=== PATIENT | female | born 1950 | race Two or more races ===

== ENCOUNTER → 2016-04-20 | Outpatient (CLI) | payer OTHER ==
[~2016-04-20] MED LIST: ASPI325T32 PO; ASPI81TA3 PO; ATOR10TA65 PO; CALC600T11 PO; GABA100C14 PO; GLIP5TAB13 PO; HYDR-905 PO; LOSA1TAB19 PO; METO-448 PO; PANT40TA4 PO; ULT50 PO; VIT D2
--- NOTE | 2016-04-20 10:19 | RADRPT ---
PROCEDURE: CR Bone length study CLINICAL INDICATION: Pain TECHNIQUE: An AP weightbearing view of the pelvis and lower extremities was submitted. The study is limited and at the distal tibia and fibula and ankle joints are not included. COMPARISON: None FINDINGS: There is a minimal femoral length discrepancy with the right measuring 42.2 and the left 42.7 cm. T he left femur is therefore 0.5 cm longer than the right. There is no significant pelvic tilt. There is mild bilateral genu varus with moderate degenerative changes seen about the medial femoral tibia l joint spaces. IMPRESSION: 1. Limited study and at the distal lower legs were not included. 2. The left femur is 0.5 cm longer than the right. 3. Bilateral genu varus with moderate degenerative changes seen about the medial femoral tibial shirley nt spaces. Physician Joleen Date Time Electronically viewed and signed by Physician Joleen on 04/20/2016 10:18 /
== END | disposition home or self-care (01) ==
LOC: HKI 09:02
PROVIDERS: ATTEND Orthopaedic Surgery
DX: Z01.818 Encounter for other preprocedural examination (principal); M25.562 Pain in left knee; M25.561 Pain in right knee; I10 Essential (primary) hypertension; E11.9 Type 2 diabetes mellitus without complications; Z96.89 Presence of other specified functional implants; M21.162 Varus deformity, not elsewhere classified, left knee; M21.161 Varus deformity, not elsewhere classified, right knee
CPT/HCPCS: 77073; 87081; Z7500; G0463

== ENCOUNTER 2016-04-26 06:38 | Inpatient (IN) | payer OTHER ==
[2016-04-26] VITALS (27 sets, daily range): BP systolic 110–179; BP diastolic 53–81; PULSE 68–100; RESP 7–19; Ht 152.4 cm; Wt 76.1 kg
[~2016-04-26] VITALS: Ht 152.4 cm; Wt 76.1 kg
[2016-04-26] MEDS ORDERED: SOD CHLORIDE 0.9% IV SCH (07:00)
[2016-04-26] MEDS ORDERED: EXPAREL NOTE (BUPIVICAINE LIPOSOMAL) XX SCH (07:00)
[2016-04-26] MEDS ORDERED: PREGABALIN 300 MG PO X1 PO SCH (07:00)
[2016-04-26] MEDS ORDERED: LACTATED RINGER'S 1,000 ML IV SCH (07:00)
[2016-04-26] MEDS ORDERED: CEFAZOLIN 2GM/50 ML (PMX) 50 ML X1 BEFORE INCISION IVPB SCH (07:00)
[2016-04-26] MEDS ORDERED: BUPIVACAINE LIPOSOME/PF 266 MG/20 ML VIAL INFIL SCH (07:00)
[2016-04-26] MEDS ORDERED: oxyCODONE (CR) 10 MG TAB [oxyCONTIN] X1 DOSE PO SCH (07:00)
[2016-04-26] MEDS ORDERED: TRANEXAMIC ACID IVPB SCH (07:00)
[2016-04-26] MEDS ORDERED: EPHEDrine SULFATE 50 MG/5 ML SYG ONE (07:00)
[2016-04-26] MEDS ORDERED: PAIN COCKTAIL-CEFUROXIME IRR SCH ×7 (07:00)
[2016-04-26] MEDS ORDERED: CELECOXIB 400 MG PO X1 DOSE PO SCH (07:00)
[2016-04-26] MEDS ORDERED: traMADOL 50 MG TAB X 1 DOSE PO SCH (07:00)
[2016-04-26] MEDS ORDERED: SOD CHLORIDE 0.9% IVPB SCH (07:00)
[2016-04-26] MEDS ORDERED: PROPOFOL 1000 MG INJ ONE (07:00)
[2016-04-26] MEDS ORDERED: TRANEXAMIC ACID IV SCH (07:00)
[2016-04-26] MEDS ORDERED: VIT D2 (12:26)
[2016-04-26] MEDS ORDERED: GLIP5TAB13 PO (12:26)
[2016-04-26] MEDS ORDERED: ASPI81TA3 PO (12:26)
[2016-04-26] MEDS ORDERED: ATOR10TA65 PO (12:26)
[2016-04-26] MEDS ORDERED: CALC600T11 PO (12:26)
[2016-04-26] MEDS ORDERED: METO-448 PO (12:26)
[2016-04-26] MEDS ORDERED: LOSA1TAB19 PO (12:26)
[2016-04-26] MEDS ORDERED: METOCLOPRAMIDE 10 MG INJ ONE (13:02)
[2016-04-26] MEDS ORDERED: CEFAZOLIN 1 GM INJ ONE (13:02)
[2016-04-26] MEDS ORDERED: ONDANSETRON 4 MG INJ ONE (13:02)
[2016-04-26] MEDS ORDERED: MIDAZOLAM 1 MG/ML 2 ML INJ ONE (13:02)
[2016-04-26] MEDS ORDERED: DEXAMETHASONE 4 MG/ML 1 ML INJ ONE (13:02)
[2016-04-26] MEDS ORDERED: VANCOMYCIN 1 GM INJ ONE (13:08)
[2016-04-26] MEDS ORDERED: SODIUM CL BACTERIOSTATIC 30 ML INJ ONE (13:08)
[2016-04-26] MEDS ORDERED: POLYMYXIN B 500000 UNIT INJ ONE (13:08)
--- NOTE | 2016-04-26 13:37 | HPN ---
Date/Time of Note Date/Time of Note DATE: 04/26/16 TIME: 13:36 Interval H&P Admission Note Pt. seen H&P reviewed: No system changes No change from H&P by Marlene Klein NP on 04/18/16. PRECIOUS MURILLO MD Apr 26, 2016 13:37
[2016-04-26] MEDS ORDERED: MEPERIDINE 25 MG INJ IV PRN (15:00)
[2016-04-26] MEDS ORDERED: HYDROmorphONE (0.2 MG/ML) 10ML SYG IV PRN ×3 (15:00)
[2016-04-26] MEDS ORDERED: DIPHENHYDRAMINE 50 MG INJ IV PRN (15:00)
[2016-04-26] MEDS ORDERED: ONDANSETRON 4 MG INJ IV PRN ×2 (15:00→17:00)
[2016-04-26] MEDS ORDERED: METOCLOPRAMIDE 10 MG INJ IV PRN (15:00)
[2016-04-26] MEDS: BACITRACIN 50000 UNITS INJ ONE ×2 (15:23→15:27)
[2016-04-26] MEDS ORDERED: METOPROLOL 5 MG INJ ONE (16:02)
[2016-04-26] MEDS ORDERED: LIDOCAINE 100 MG SYRINGE ONE (16:40)
[2016-04-26] MEDS: LACTATED RINGER'S 1,000 ML IV SCH ×2 (16:56→19:30)
--- NOTE | 2016-04-26 16:57 | OPPN ---
Date/Time of Note Date/Time of Note DATE: 04/26/16 TIME: 16:54 Operative/Procedure Note Dictation # [id number] Pre-Operative Diagnosis Left Knee OA Post-Operative Diagnosis Same Procedure Left TKA Surgeon: PRECIOUS MURILLO MD Haul Truck Driver: BLAIR MURILLO PA-C Anesthesiologist: DEX GOMEZ MD Findings Severe OA Blood Usage/Administration None Implants/Grafts Depuy Attune TKA Estimated blood loss: 50 - 100 ml's Drains Hemovac x 1 Specimens Bone and soft tissue Complications: None Anesthesia type: spinal PRECIOUS MURILLO MD Apr 26, 2016 16:57
[2016-04-26] MEDS ORDERED: ASPIRIN (EC) 325 MG TAB PO ONE (17:00)
[2016-04-26] MEDS ORDERED: oxyCODONE 5 MG TAB PO PRN ×2 (17:00)
[2016-04-26] MEDS ORDERED: MAGNESIUM HYDROXIDE 30ML CUP PO PRN (17:00)
[2016-04-26] MEDS: traMADol 50 MG TAB PO SCH ×2 (17:00→18:00)
[2016-04-26] MEDS ORDERED: NACL 0.9% 3 ML SYG IV SCH (17:00)
[2016-04-26] MEDS ORDERED: NA PHOSPHATE/BIPHOS 133 ML ENEMA PR PRN (17:00)
[2016-04-26] MEDS ORDERED: BISACODYL 10 MG SUPP PR PRN (17:00)
[2016-04-26] MEDS ORDERED: DIPHENHYDRAMINE 25 MG CAP PO PRN (17:00)
[2016-04-26] MEDS ORDERED: HYDROmorphONE 1 MG/ML SYG IV PRN (17:00)
--- NOTE | 2016-04-26 17:14 | PN ---
Date/Time of Note Date/Time of Note DATE: 04/26/16 TIME: 17:12 Assessment/Plan Lines/Catheters IV Catheter Type (from Nrsg): Peripheral IV Assessment/Plan Assessment/Plan Stable in PACU, s/p left TKA -cont abx -pain meds -ASA/SCDs -monitor drain -OOB with PT in AM -check AM labs -encourage incentive spirometry -macrobid 100mg BID for UTI -d/c interiano in AM and check urine Subjective 24 Hr Interval Summary Stable in PACU. Moving all extremities. Denies pain Exam/Review of Systems Vital Signs Vitals Vital Signs Date Time Temp Pulse Resp B/P Pulse Ox O2 Delivery O2 Flow Rate FiO2 04/26/16 12:00 68 145/66 04/26/16 10:10 97.6 16 99 Room Air Exam Free Text/Dictation Dressing dry Incision clean, dry, and intact without redness or drainage Thigh soft 5/5 Quadriceps, Tibialis Anterior, EHL, Gastroc, Soleus, Peroneals Normal sensation Palpable DT/PT, CR <2 sec No distal edema BLAIR UMRILLO PA-C Apr 26, 2016 17:14
--- NOTE | 2016-04-26 17:29 | OPR ---
DATE OF OPERATION: 04/26/2016 DATE: 04/26/2016 PREOPERATIVE DIAGNOSIS: Left knee osteoarthritis. POSTOPERATIVE DIAGNOSIS: Left knee osteoarthritis. OPERATION PERFORMED: Left total knee arthroplasty. SURGEON: Precious Murillo MD RELIEF MAP MODELER: CHEMO Hassan COMPONENTS USED: DePuy Attune size 3 femoral component, size 3 tibial baseplate, 6 mm polyethylene insert, and a 32 patellar button. ANESTHESIA: Spinal plus general endotracheal intubation plus periarticular injection. ANESTHESIOLOGIST: Sara Humphrey MD TOURNIQUET TIME: 70 minutes. ESTIMATED BLOOD LOSS: 50 mL. INTRAVENOUS FLUIDS: Crystalloid 2 liters. SPECIMENS: Bone and soft tissue. DRAINS: Hemovac x1. COMPLICATIONS: None. DISPOSITION: The patient tolerated the procedure well and was taken to the recovery room in stable condition. INDICATIONS: The patient is a 66-year-old woman who has had progressive worsening pain in both knee s with radiographic evidence of severe osteoarthritis bilaterally. She has failed nonsurgical means of treatment including activity modification, intra-articular injections, pain medications, and amb ulatory assist devices. Despite these measures, she has had worsening pain. I felt she would benef it from staged bilateral total knee arthroplasties with the left side first. The risks, benefits, and alternatives of the procedure were explained in detail to the patient. I e xplained the risks of the surgery to include but not be limited to, bleeding and possible need for b lood transfusion; infection; pain; stiffness; neurovascular injury with possible numbness, weakness, and/or paralysis anywhere from the knee down to the toes; fracture; instability; dislocation; wear and/or loosening of the prosthesis and possible need for future revision; blood clots; pulmonary emb olism; and anesthetic complications such as heart attack, stroke, GI bleed, pneumonia, and/or . Ample time was allowed for the patient to ask questions, all of which were addressed and answered. The patient understood the risks involved and wished to proceed. Informed consent was signed prior to the procedure. PROCEDURE: The patient's left knee was initialed with a marking pen in the preoperative area to nader ntify the correct operative site. The patient was brought to the operating room and transferred fro [facility] to the operating table where a spinal anesthetic was administered. The patien t was then anesthetized and intubated. A Sanchez catheter was placed. A timeout was performed to con firm that the left leg was the correct operative site. The patient was given 2 g of Ancef within on e hour prior to the procedure. A tourniquet was placed on the operative proximal thigh. The operat aleyda knee and lower extremity were prepped and draped in the usual sterile fashion. The operative lo wer extremity was elevated and exsanguinated with an Esmarch tourniquet. The proximal thigh tourniq uet was inflated to 300 mmHg. The knee was flexed. A midline incision was made and carried down through the subcutaneous tissue a nd fat with sharp dissection. Limited medial and lateral flaps were raised. A median parapatellar approach was performed. Synovial fluid was normal in color and consistency. The patella was everte d and the knee flexed. There were severe tricompartmental osteoarthritic changes noted. A medial r elease was performed at the joint line to the midcoronal plane. The ACL and PCL and remnants of the menisci were excised. The stepped drill was used to open up the femoral canal, which was irrigated and sucked dry. The intramedullary guide klaus was passed up the femur, and the distal cutting block was pinned into place for a 5 degree valgus cut, taking 10 mm of bone off distally. The oscillatin g saw was used to make the cut. The tibia was subluxed anteriorly. The tibial cutoff jig was placed over the center of the talus di stally and over the junction of the medial and middle third of the tibial tubercle proximally. The guide was pinned into place and the oscillating saw was used to make the cut. The tibia was sized. The extension gap was checked and accommodated a 6 mm spacer block with the knee in full extension. There was no varus or valgus instability. At this point, the femur was sized with the posterior referencing guide. Two holes were drilled in 3 degrees of external rotation. The two holes were in line with the transepicondylar axis, perpendi cular to Boyle's line, and in line with the tibial cutoff jig brought up with the knee flexed 90 degrees and tensed with 2 lamina spreaders, suggesting the femoral rotation was correct. The four- in-one cutting block was pinned into place. The anterior and posterior cuts and chamfer cuts were m terrance with the oscillating saw. The flexion gap was checked and accommodated the 6 mm spacer block at 90 degrees. There was no varus or valgus instability, suggesting the flexion and extension gaps we re now equal. The central box was cut out on the femur. The tibia was drilled and punched in proper rotation. Tr ial components were placed into position with a trial insert. The patella was cut down to 20 mm sissy n to 12 mm in size. Three holes were drilled and the trial button placed in position. With all the trials now in place, the knee was taken through range of motion and came to full extension as evide nced by the fact that with the foot on my abdomen and axial loading, there was no tendency for the k nee to flex. The knee was able to be flexed to 125 degrees with good patellar tracking with no late ral tilt or subluxation. At this point, I was satisfied with the overall range of motion, stability , and patellar tracking. The trials were removed. The real components were opened. Two bags of cement were mixed, one with and one without premixed antibiotic. The knee was irrigated with antibiotic saline and sucked dry. Once the cement was in a doughy stage, the real components were cemented into place. The knee was held in full extension, and the patellar component was held with a patellar clamp. All excess cemen t was removed with curettes. As the cement was hardening, the synovial/capsular layer was infiltrat ed with a mixture of 150 mg of 0.5% Bupivacaine, 8 mg of Duramorph, 300 mcg of epinephrine, 30 mg of Toradol, 100 mcg of clonidine, 750 mg of cefuroxime and 86 mL of normal saline, followed by an inje ction of 266 mg of liposomal Bupivacaine. A Hemovac drain was placed in the deep portion of the wound and brought out the anterolateral thigh. Once the cement was completely hardened, the trial liner was removed, and the real insert was open ed. The tourniquet was let down, and there was good hemostasis. The knee was then irrigated with a mixture of betadine/saline and then antibiotic saline with pulsatile lavage. The real insert was i mpacted into the tibia and reduced onto to the femur. The arthrotomy was closed with a few interrupted #1 Ethibond in a [id number]-tv-ooxne fashion, and then closed in a watertight fashion with a running #2 Stratafix suture. Knee flexion was checked against gravity and came to 125 degrees. The subcutaneous layer was irrigated and closed with 2-0 Stratafi x, and then 3-0 Stratafix and then Prineo Dermabond on the skin. The wound was covered with an occl usive dressing, and secured with cast padding and a bias dressing. The drain was secured with 3-0 n ylon. The sponge and needle counts were correct at the end of the case. The patient was then awakened, ex tubated, and taken to the recovery room in stable condition. Dictated By: PRECIOUS MURILLO MD EZ/NTS Conf#: [id number] DID#: [id number]
[2016-04-26 17:35] LABS: HEMATOCRIT 35.5 % (37.0-47.0)
--- NOTE | 2016-04-26 17:49 | RADRPT ---
PROCEDURE: XR Left Knee. CLINICAL INDICATION: Left knee pain. Postop. TECHNIQUE: Two views. Frontal and lateral. COMPARISON: 12/09/2015. FINDINGS: There is no fracture or dislocation. There is an anterior surgical drain. Gas is present in the soft tissues from the recent surgery. There is a total left knee arthroplasty which appears satisfactory. There is no lytic or blastic lesion. There is no joint effusion. IMPRESSION: 1. Satisfactory postoperative appearance of the left knee. RPTAT: QQ .Isaac Cha MD, MD Date Time Electronically viewed and signed by .Isaac hCa MD, MD on 04/26/2016 17:49 .R/
[2016-04-26] MEDS: CEFAZOLIN 2 GM/50 ML (PMX) 50 ML IVPB SCH (17:51)
[2016-04-26 17:59] LABS: CALCIUM 9.1 mg/dl (8.4-10.2); CREATININE 0.78 mg/dl (0.44-1.00); POTASSIUM 4.6 mmol/L (3.5-5.1)
[2016-04-26] MEDS: ACETAMINOPHEN 1000MG/100ML IV 100 ML IVPB SCH (18:00)
[2016-04-26] MEDS: PANTOPRAZOLE (EC) 40 MG TAB PO SCH (18:00)
[2016-04-26] MEDS ORDERED: hydrALAzine 20 MG INJ IV PRN (18:00)
--- NOTE | 2016-04-26 18:49 | CONS ---
DATE OF ADMISSION: 04/26/2016 DATE OF CONSULTATION: 04/26/2016 TYPE OF CONSULTATION: Medical. REASON FOR CONSULTATION: Medical management. CONSULTING PHYSICIAN: Dr. Alfred Adams, Internal Medicine REQUESTING PHYSICIAN: Dr. Larry Bolanos, Orthopedic Surgery HISTORY OF PRESENT ILLNESS: This is a 66-year-old Martiniquais female with past medical history of essential hypertension, type 2 diabetes mellitus, dyslipidemia, CAD and left knee osteoarthritis who was electively brought to [facility] for left total knee arthroplasty. The patient underwent a left total knee arthroplasty with no immediate postoperative complications. The patient was seen in the PACU following surgery. The patient has history of CAD, status post stenting. The patient also has history of bradycardia, probably sick sinus syndrome, status post pacemaker placement. Both of these procedures were done back in [facility]. The patient follows up with Dr. Ihsan Cole, front end software engineer at [place]. PAST MEDICAL HISTORY: Type 2 diabetes mellitus, dyslipidemia, essential hypertension, CAD. PAST SURGICAL HISTORY: Permanent pacemaker placement. HOME MEDICATIONS: 1. Atorvastatin 10 mg p.o. at bedtime. 2. Losartan with hydrochlorothiazide 50/12.5 mg p.o. daily. 3. Lopressor 25 mg p.o. b.i.d. 4. Aspirin 81 mg p.o. daily. 5. Calcium carbonate 600 mg p.o. daily. 6. Glipizide 5 mg p.o. b.i.d. 7. Vitamin D2 50,000 units every week. ALLERGIES: NO KNOWN DRUG ALLERGIES. SOCIAL HISTORY: The patient lives at home with her family. No history of tobacco, alcohol or illicit drug use. REVIEW OF SYSTEMS: Unable to obtain review of systems since the patient is sedated following surgery. Details of the patient's medical problems were obtained from the patient's who was at the bedside as well as per reviewing the patient's medical records. PHYSICAL EXAMINATION: VITAL SIGNS: Temperature 98.4, pulse rate 60, respiratory rate 16, blood pressure 145/66, oxygen saturation 99% on room air. GENERAL: This is an obese Martiniquais female lying in bed in no apparent distress, somnolent. HEENT: Head normocephalic and atraumatic. Eyes: Anicteric sclerae. Conjunctivae clear. ENT: Nasal septum is midline. Oral mucosa is dry. NECK: Supple. No JVD noticed. RESPIRATORY: Bilaterally clear to auscultation. No adventitious breath sounds heard. No use of accessory muscles of respiration. CARDIAC: Regular rate and rhythm. S1, S2 heard. ABDOMEN: Soft, nontender and nondistended. Bowel sounds hypoactive in all 4 quadrants. GENITOURINARY: The patient has Sanchez catheter in place. EXTREMITIES: Left knee joint surgical dressing. Left lower extremity dorsalis pedis and posterior tibial pulses palpable. Right lower extremity within normal limits. NEUROLOGIC: The patient is somnolent. Wakes up to call and follows simple commands. Moves all 4 extremities. LABORATORY AND DIAGNOSTIC DATA: None available. IMPRESSION: This is a 66-year-old Martiniqu[place] female who was brought into the hospital for elective left total knee arthroplasty who underwent surgery without any immediate postoperative complications who will be admitted here for further management. ASSESSMENT AND PLAN: 1. Left knee osteoarthritis. Status post left total knee arthroplasty on 04/26. Continue postoperative care. Continue pain management as per Surgery. IV fluids as per Surgery. 2. Essential hypertension. The patient's home antihypertensives will be resumed. The patient will also be started on p.r.n. antihypertensives for any systolic blood pressure readings greater than 160 mmHg. 3. History of coronary artery disease. Status post stenting in the past. The patient will be continued on aspirin. However, aspirin dosing will be deferred to Orthopedic Surgery. 4. Dyslipidemia. The patient will be resumed on her statins. A fasting lipid panel will be obtained. A low-cholesterol diet will be reinforced. 5. Type 2 diabetes mellitus. The patient has been resumed on her oral medications by Orthopedic Surgery. This will be continued. A hemoglobin A1c will be obtained to evaluate the blood glucose control over the past few weeks. Random blood glucose checks will be ordered. If the patient's blood glucose is uncontrolled, will start the patient on sliding scale insulin. Additional diagnostic and therapeutic orders will be as clinically indicated. The case and management of this patient was fully discussed with Dr. Adams. We will continue to follow with the patient along with you. Thank you for the consultation. Approximately 45 minutes was spent on the medical consultation on this patient. NYASIA ADAMS MD, AM/LB Conf#: [id number] DID#: [id number] [id number]
[2016-04-26] MEDS: PREGABALIN 25 MG CAP PO SCH (20:52)
[2016-04-26] MEDS: ATORVASTATIN 10 MG TAB PO SCH (20:52)
[2016-04-26] MEDS: glipiZIDE 5 MG TAB PO SCH (20:52)
[2016-04-26] MEDS: METOPROLOL 25 MG TAB PO SCH (20:52)
[2016-04-26] MEDS: NITROFURANTOIN (SR) 100 MG CAP PO SCH (20:52)
[2016-04-26] MEDS: DOCUSATE SODIUM 100 MG CAP PO SCH (20:52)
[2016-04-27] MEDS: traMADol 50 MG TAB PO SCH ×4 (00:09→18:20)
[2016-04-27] MEDS: ACETAMINOPHEN 1000MG/100ML IV 100 ML IVPB SCH ×3 (00:14→11:44)
[2016-04-27] MEDS: LACTATED RINGER'S 1,000 ML IV SCH ×3 (00:56→15:45)
[2016-04-27] MEDS: CEFAZOLIN 2 GM/50 ML (PMX) 50 ML IVPB SCH ×2 (01:57→08:43)
[2016-04-27 05:00] VITALS: BP 119/53; PULSE 66; RESP 18
[2016-04-27] MEDS: PANTOPRAZOLE (EC) 40 MG TAB PO SCH ×2 (05:46→18:22)
[2016-04-27 05:57] LABS: HEMATOCRIT 34.4 % (37.0-47.0); HEMOGLOBIN 11.7 g/dl (12.0-16.0); LYMPHOCYTES # 0.7 10^3/ul (0.8-2.9); MEAN CORPUSCULAR HGB CONC 33.9 g/dl (32.0-37.0); MEAN CORPUSCULAR VOLUME 88.5 fl (82.0-101.0); MEAN PLATELET VOLUME 9.3 fl (7.4-10.4); MONOCYTE # 0.4 10^3/ul (0.3-0.9); NEUTROPHIL # 8.1 10^3/ul (1.6-7.5); PLATELET COUNT 179 10^3/UL (140-440); RED BLOOD COUNT 3.89 10^6/ul (4.20-5.40); RED CELL DISTRIBUTION WIDTH 13.5 % (11.5-14.5); UNCORRECTED WBC 9.3 10^3/ul (4.8-10.8); WHITE BLOOD COUNT 9.3 10^3/ul (4.8-10.8)
[2016-04-27 06:19] LABS: CONDITION 1
[2016-04-27 06:24] LABS: CHOL/HDL RATIO 2.7 RATIO; MAGNESIUM 1.8 mg/dl (1.7-2.5); PHOSPHORUS 4.9 mg/dl (2.5-4.9)
[2016-04-27 06:37] LABS: ALBUMIN 3.3 g/dl (3.3-4.9)
[2016-04-27 06:38] LABS: POTASSIUM 5.8 mmol/L (3.5-5.1)
[2016-04-27 06:40] LABS: ALBUMIN/GLOBULIN RATIO 1.13; BILIRUBIN,INDIRECT 0.2 mg/dl (0-1.1); BILIRUBIN,TOTAL 0.2 mg/dl (0.2-1.3); CREATININE 0.9 mg/dl (0.44-1.00); TOTAL PROTEIN 6.2 g/dl (6.1-8.1)
[2016-04-27 06:41] LABS: CALCIUM 8.9 mg/dl (8.4-10.2)
[2016-04-27 07:07] LABS: ADD UMIC YES; URINE BILIRUBIN (Dip) NEGATIVE (NEGATIVE); URINE BLOOD (Dip) 2+ (NEGATIVE); URINE COLOR LT. YELLOW (YELLOW); URINE GLUCOSE (Dip) NEGATIVE (NEGATIVE); URINE KETONES (Dip) NEGATIVE (NEGATIVE); URINE LEUKOCYTE ESTERASE (Dip) 1+ (NEGATIVE); URINE NITRITE (Dip) NEGATIVE (NEGATIVE); URINE TOTAL PROTEIN (Dip) NEGATIVE (NEGATIVE); URINE UROBILINOGEN (Dip) 0.2 E.U./dL (0.1-1.0)
--- NOTE | 2016-04-27 07:26 | PDOCDIS ---
Discharge Instructions DIAGNOSIS Discharge Diagnosis: s/p left TKA CONDITION Patient Condition: Good HOME CARE INSTRUCTIONS: Diet Instructions: Regular ACTIVITY: Activity Restrictions: Slowly Increase Activity Rest between Activity Avoid heavy lifting Do not operate Machinery Do not operate Power Tool Avoid Heavy Housework Keep Limb Elevated Bathing Restrictions: Shower FOLLOW UP/APPOINTMENTS Appointments follow up with Dr. Bolanos in the office on 05/07/16 OTHER ORDERS: Other Orders: S/P TKA Physical Therapy: Three times per week at home x 2 weeks Daily in Rehab/SNF (if applicable) WB STATUS: WBAT 1. Strengthening exercises for both upper and un-operated lower extremities. 2. Gait training with front wheeled walker 3. Active range of motion exercises to operative knee. 4. When not working on knee range of motion exercises, distal towel roll under operative ankle/distal calf to promote full extension. 5. DO NOT PUT ANYTHING BEHIND OPERATIVE KNEE!!! 6. Quadriceps and hamstring strengthening. 7. May switch to cane in contra lateral hand 6 weeks after surgery. 8. Physical Therapy can open case if nursing is not available. 9. Use Ice Machine as instructed from date of surgery while at rest 3X/day. 10. Patient requires mobile SCDs to reduce risk of developing DVT following TKA. Patient will use the mobile SCDs for 30 days postoperatively. Bathing assistance by home health aide twice weekly if Medicare patient. Occupational Therapy: Evaluation for assistive devices and ADL training. Wound Care: Keep incision dry & covered with Tegaderm until first visit with Dr. Bolanos Anticoagulation Orders: Enteric Coated Aspirin 325 mg po bid x 6 weeks from date of surgery Follow-up:Call for an appointment with Dr. Bolanos in 1 week after discharged from hospital at DME Orders: FWW, 3-in-1 Commode, Polar ice machine, Mobile SCDs BLAIR MURILLO PA-C Apr 27, 2016 07:26
[2016-04-27] MEDS ORDERED: DEXTROSE 50% 50 ML SYRINGE IV PRN ×2 (07:30)
[2016-04-27] MEDS ORDERED: GLUCAGON 1 MG INJ IM PRN (07:30)
[2016-04-27] MEDS ORDERED: GLUCOSE GEL 15 GRAM TUBE BUCCAL PRN (07:30)
[2016-04-27] MEDS ORDERED: GLUCOSE GEL 15 GRAM TUBE PO PRN ×2 (07:30)
[2016-04-27] MEDS ORDERED: ASPI325T32 PO (07:31)
[2016-04-27] MEDS ORDERED: PANT40TA4 PO (07:31)
[2016-04-27] MEDS ORDERED: GABA100C14 PO (07:31)
[2016-04-27] MEDS ORDERED: ULT50 PO (07:31)
[2016-04-27 07:59] LABS: BACTERIA,URINE FEW; URINE RBCS 25-50 /HPF (0)
[2016-04-27] MEDS ORDERED: NA POLYST SULFON 15 GM/60 ML BTL PO ONE ×2 (08:00→09:00)
[2016-04-27 08:23] VITALS: BP 120/58; RESP 18
[2016-04-27] MEDS: glipiZIDE 5 MG TAB PO SCH ×2 (08:44→21:19)
[2016-04-27] MEDS: NITROFURANTOIN (SR) 100 MG CAP PO SCH ×2 (08:44→21:18)
[2016-04-27] MEDS: ASPIRIN (EC) 325 MG TAB PO SCH ×2 (08:44→21:18)
[2016-04-27] MEDS: DOCUSATE SODIUM 100 MG CAP PO SCH ×2 (08:44→21:00)
[2016-04-27] MEDS: CELECOXIB 200 MG CAP PO SCH (08:44)
[2016-04-27] MEDS: METOPROLOL 25 MG TAB PO SCH ×2 (08:46→21:19)
[2016-04-27] MEDS: PREGABALIN 25 MG CAP PO SCH ×2 (08:58→21:18)
--- NOTE | 2016-04-27 09:12 | PN ---
Date/Time of Note Date/Time of Note DATE: 04/27/16 TIME: 09:11 Assessment/Plan Lines/Catheters IV Catheter Type (from Nrsg): Peripheral IV Sanchez in Place (from Nrsg): Yes Assessment/Plan Assessment/Plan Stable POD #1, s/p left TKA -d/c abx -pain meds -ASA/SCDs -OOB with PT -drain removed -check AM labs -encourage incentive spirometry -d/c planning. Will aim to d/c tomorrow Subjective 24 Hr Interval Summary Doing well. No acute overnight events. Denies pain. VSS, afebrile. Would like to go home versus rehab Exam/Review of Systems Vital Signs Vitals Vital Signs Date Time Temp Pulse Resp B/P Pulse Ox O2 Delivery O2 Flow Rate FiO2 04/27/16 08:23 97.9 61 18 120/58 98 04/27/16 05:00 Nasal Cannula 04/26/16 19:40 2.0 Intake and Output 04/26/16 04/26/16 04/27/16 15:00 23:00 07:00 Intake Total 2000 ml 1610 ml Output Total 280 ml 980 ml Balance 1720 ml 630 ml Exam Free Text/Dictation Hemovac: 210cc Dressing dry Incision clean, dry, and intact without redness or drainage Thigh soft 5/5 Quadriceps, Tibialis Anterior, EHL, Gastroc, Soleus, Peroneals Normal sensation Palpable DT/PT, CR <2 sec No distal edema Results Result Diagram: 04/27/1643904/27/16439 BLAIR MURILLO PA-C Apr 27, 2016 09:12
--- NOTE | 2016-04-27 11:49 | PN ---
Date/Time of Note Date/Time of Note DATE: 04/27/16 TIME: 11:43 Assessment/Plan VTE Prophylaxis VTE Prophylaxis Intervention: other (Aspirin as per orthopedic surgery.) Lines/Catheters IV Catheter Type (from [facility]): Peripheral IV Urinary Cath still in place: No Assessment/Plan Chief Complaint/Hosp Course 1. Left knee osteoarthritis. Status post left total knee arthroplasty on 04/26. Continue postoperative care. Continue pain management as per Surgery. Continue PT. 2. Essential hypertension. Continue routine antihypertensives and p.r.n. antihypertensives for any systolic blood pressure readings greater than 160 mmHg. 3. History of coronary artery disease. Status post stenting in the past. The patient will be continued on aspirin. 4. Dyslipidemia. The patient will be continued on her statins. Fasting lipid panel satisfactory. A low-cholesterol diet will be reinforced. 5. Type 2 diabetes mellitus. Hemoglobin A1C 6.6. On sulfonylureas. 6. Hyperkalemia. Etiology unclear. Will give a single dose of potassium exchange resin. Will repeat potassium level in the afternoon. 7. Permanent pacemaker. As per the family, the patient has a permanent pacemaker in place. However, the 12-lead EKG showing normal sinus rhythm and no pacer spikes. Denies any cardiac complaints. Monitor. 8. Fluids, electrolytes, and nutrition. Carbohydrate controlled, low- cholesterol diet. 9. DVT prophylaxis. Aspirin as per orthopedic surgery. 10. Gastrointestinal prophylaxis. Proton pump inhibitors. 11. Plan. Single dose of Kayexalate. Repeat potassium in the afternoon. Continue surgical management as per orthopedic surgery. Thank you for the consult. Case discussed with Dr. Garcia. Problems: Subjective 24 Hr Interval Summary Free Text/Dictation Left knee pain well controlled. Denies any dyspnea. Exam/Review of Systems Vital Signs Vitals Vital Signs Date Time Temp Pulse Resp B/P Pulse Ox O2 Delivery O2 Flow Rate FiO2 04/27/16 08:23 97.9 61 18 120/58 98 04/27/16 05:00 Nasal Cannula 04/26/16 19:40 2.0 Intake and Output 04/26/16 04/26/16 04/27/16 15:00 23:00 07:00 Intake Total 2000 ml 1610 ml Output Total 280 ml 980 ml Balance 1720 ml 630 ml Exam GENERAL: This is an obese [place] female lying in bed in no apparent distress. HEENT: Head normocephalic and atraumatic. Eyes: Anicteric sclerae. Conjunctivae clear. ENT: Nasal septum is midline. Oral mucosa is dry. NECK: Supple. No JVD noticed. RESPIRATORY: Bilaterally clear to auscultation. No adventitious breath sounds heard. No use of accessory muscles of respiration. CARDIAC: Regular rate and rhythm. S1, S2 heard. ABDOMEN: Soft, nontender and nondistended. Bowel sounds hypoactive in all 4 quadrants. GENITOURINARY: The patient has Sanchez catheter in place. EXTREMITIES: Left knee joint surgical dressing. Left lower extremity dorsalis pedis and posterior tibial pulses palpable. Right lower extremity within normal limits. NEUROLOGIC: The patient is awake, alert, and oriented. No focal deficits. Results Result Diagram: 04/27/16 0440 04/27/16 0440 Results 24 hrs Laboratory Tests Test 04/26/16 17:25 04/26/16 17:59 04/26/16 22:15 04/27/16 04:40 Anion Gap 16 18 H Blood Urea Nitrogen 19 24 H Calcium Level 9.1 8.9 Carbon Dioxide Level 25 25 Chloride Level 101 98 Creatinine 0.78 0.90 Glucose Level 172 166 Hematocrit 35.5 L 34.4 L Hemoglobin 12.0 11.7 L Potassium Level 4.6 5.8 H Sodium Level 137 135 Bedside Glucose 171 239 H Alanine Aminotransferase (ALT/SGPT) 24 Albumin 3.3 Albumin/Globulin Ratio 1.13 Alkaline Phosphatase 46 Aspartate Amino Transf (AST/SGOT) 23 Basophils # 0.0 Basophils % 0.0 Cholesterol Level 110 Cholesterol/HDL Ratio 2.7 Direct Bilirubin 0.00 Eosinophils # 0.0 Eosinophils % 0.0 Globulin 2.90 HDL Cholesterol 40 Hemoglobin A1c 6.6 H Indirect Bilirubin 0.2 LDL Cholesterol, Calculated 50 Lymphocytes # 0.7 L Lymphocytes % 8.0 L Magnesium Level 1.8 Mean Corpuscular Hemoglobin 30.0 Mean Corpuscular Hemoglobin Concent 33.9 Mean Corpuscular Volume 88.5 Mean Platelet Volume 9.3 Monocytes # 0.4 Monocytes % 4.0 Neutrophils # 8.1 H Neutrophils % 88.0 H Nucleated Red Blood Cells # 0.0 Nucleated Red Blood Cells % 0.0 Phosphorus Level 4.9 Platelet Count 179 Red Blood Count 3.89 L Red Cell Distribution Width 13.5 Total Bilirubin 0.2 Total Protein 6.2 Triglycerides Level 100 White Blood Count 9.3 Test 04/27/16 06:00 04/27/16 08:08 Urine Bacteria FEW Urine Bilirubin NEGATIVE Urine Clarity CLEAR Urine Color LT. YELLOW Urine Epithelial Cells FEW Urine Glucose NEGATIVE Urine Hemoglobin 2+ H Urine Ketones NEGATIVE Urine Leukocyte Esterase 1+ H Urine Microscopic RBC 25-50 Urine Microscopic WBC 10-25 Urine Nitrite NEGATIVE Urine Specific [place] 1.020 Urine Total Protein NEGATIVE Urine Urobilinogen 0.2 E.U./dL Urine pH 6.0 Bedside Glucose 137 Medications Medications Current Medications Miscellaneous Information 1 ea NOTE XX ; Start 04/26/16 at 07:00; Stop 04/30/16 at 06:59 Atorvastatin Calcium (Lipitor) 10 mg QHS PO Last administered on 04/26/16 20: 52; Admin Dose 10 MG; Start 04/26/16 at 21:00 Glipizide (Glucotrol) 5 mg BID PO Last administered on 04/27/16 08:44; Admin Dose 5 MG; Start 04/26/16 at 21:00 Metoprolol Tartrate 25 mg 25 mg BID PO Last administered on 04/27/16 08:46; Admin Dose 25 MG; Start 04/26/16 at 21:00 Lactated Ringer's (Lr) 1,000 ml @ 125 mls/hr Q8H IV Last administered on 05:59; Admin Dose 125 MLS/HR; Start 04/26/16 at 16:56 Celecoxib 200 mg 200 mg DAILY PO Last administered on 04/27/16 08:44; Admin Dose 200 MG; Start 04/27/16 at 09:00 Acetaminophen (Ofirmev 1000mg/ 100ml Iv) 100 ml @ 400 mls/hr Q6 IVPB Last administered on 04/27/16 05:46; Admin Dose 400 MLS/HR; Start 04/26/16 at 18:00 ; Stop 04/27/16 at 17:59 Tramadol HCl (Ultram) 50 mg Q6 PO Last administered on 04/27/16 05:47; Admin Dose 50 MG; Start 04/26/16 at 12:00; Stop 04/29/16 at 11:59 Oxycodone HCl (Roxicodone) 5 mg Q4H PRN PO PAIN LEVEL 1-3; Start 04/26/16 at 17 :00 Oxycodone HCl (Roxicodone) 10 mg Q4H PRN PO PAIN LEVEL 4-7; Start 04/26/16 at 17:00 Hydromorphone HCl (Dilaudid) 1 mg Q3H PRN IV PAIN LEVEL 8-10; Start 04/26/16 at 17:00 Ondansetron HCl (Zofran Inj) 4 mg Q6H PRN IV NAUSEA AND/OR VOMITING; Start 03/31 at 17:00 Bisacodyl (Dulcolax Supp) 10 mg Q12H PRN [place] CONSTIPATION; Start 04/26/16 at 17: 00 Magnesium Hydroxide (Milk Of Mag) 30 ml BID PRN PO CONSTIPATION; Start at 17:00 Sodium Biphosphate/ Sodium Phosphate (Fleet Enema) 133 ml DAILY PRN [place] CONSTIPATION; Start 04/26/16 at 17:00 Docusate Sodium (Colace) 100 mg BID PO Last administered on 04/27/16 08:44; Admin Dose 100 MG; Start 04/26/16 at 21:00 Diphenhydramine HCl (Benadryl) 25 mg Q6H PRN PO PRURITUS; Start 04/26/16 at 17: 00 Aspirin (Ecotrin) 325 mg BID PO Last administered on 04/27/16 08:44; Admin Dose 325 MG; Start 04/27/16 at 09:00 Pantoprazole (Protonix Tab) 40 mg BID@06,18 PO Last administered on 04/27/16 05:46; Admin Dose 40 MG; Start 04/26/16 at 18:00 Pregabalin (Lyrica) 50 mg BID PO Last administered on 04/27/16 08:58; Admin Dose 50 MG; Start 04/26/16 at 21:00 Nitrofurantoin Macrocrystals (Macrobid) 100 mg BID PO Last administered on 04/27 08:44; Admin Dose 100 MG; Start 04/26/16 at 21:00; Stop 05/03/16 at 20:59 Hydralazine HCl (Apresoline) 10 mg Q6H PRN IV SBP>160; Start 04/26/16 at 18:00 Miscellaneous Information 1 ea NOTE XX ; Start 04/27/16 at 07:30 Glucose (Glutose) 15 gm Q15M PRN PO DECREASED GLUCOSE; Start 04/27/16 at 07:30 Glucose (Glutose) 22.5 gm Q15M PRN PO DECREASED GLUCOSE; Start 04/27/16 at 07: 30 Dextrose (D50w Syringe) 25 ml Q15M PRN IV DECREASED GLUCOSE; Start 04/27/16 at 07:30 Dextrose (D50w Syringe) 50 ml Q15M PRN IV DECREASED GLUCOSE; Start 04/27/16 at 07:30 Glucagon (Glucagen) 1 mg Q15M PRN IM DECREASED GLUCOSE; Start 04/27/16 at 07:30 Glucose (Glutose) 15 gm Q15M PRN BUCCAL DECREASED GLUCOSE; Start 04/27/16 at 07 :30 NYASIA TRUJILLO NP Apr 27, 2016 11:48
--- NOTE | 2016-04-27 12:57 | PN ---
Date/Time of Note Date/Time of Note DATE: 04/27/16 TIME: 12:55 Assessment/Plan VTE Prophylaxis VTE Prophylaxis Intervention: ambulation Lines/Catheters IV Catheter Type (from Nrsg): Peripheral IV Urinary Cath still in place: No Subjective 24 Hr Interval Summary Free Text/Dictation aNESTHESIA NOTE: a66 TEAR FEMALE S/P left knee replacement POD # 1 under GA and Spinal. pt is doing well VS stable. no pain, headache, N/V. back is clean. Exam/Review of Systems Vital Signs Vitals Vital Signs Date Time Temp Pulse Resp B/P Pulse Ox O2 Delivery O2 Flow Rate FiO2 04/27/16 08:23 97.9 61 18 120/58 98 04/27/16 05:00 Nasal Cannula 04/26/16 19:40 2.0 Intake and Output 04/26/16 04/26/16 04/27/16 15:00 23:00 07:00 Intake Total 2000 ml 1610 ml Output Total 280 ml 980 ml Balance 1720 ml 630 ml Results Result Diagram: 04/27/16 0440 04/27/16 0440 Results 24 hrs Laboratory Tests Test 04/26/16 17:25 04/26/16 17:59 04/26/16 22:15 04/27/16 04:40 Anion Gap 16 18 H Blood Urea Nitrogen 19 24 H Calcium Level 9.1 8.9 Carbon Dioxide Level 25 25 Chloride Level 101 98 Creatinine 0.78 0.90 Glucose Level 172 166 Hematocrit 35.5 L 34.4 L Hemoglobin 12.0 11.7 L Potassium Level 4.6 5.8 H Sodium Level 137 135 Bedside Glucose 171 239 H Alanine Aminotransferase (ALT/SGPT) 24 Albumin 3.3 Albumin/Globulin Ratio 1.13 Alkaline Phosphatase 46 Aspartate Amino Transf (AST/SGOT) 23 Basophils # 0.0 Basophils % 0.0 Cholesterol Level 110 Cholesterol/HDL Ratio 2.7 Direct Bilirubin 0.00 Eosinophils # 0.0 Eosinophils % 0.0 Globulin 2.90 HDL Cholesterol 40 Hemoglobin A1c 6.6 H Indirect Bilirubin 0.2 LDL Cholesterol, Calculated 50 Lymphocytes # 0.7 L Lymphocytes % 8.0 L Magnesium Level 1.8 Mean Corpuscular Hemoglobin 30.0 Mean Corpuscular Hemoglobin Concent 33.9 Mean Corpuscular Volume 88.5 Mean Platelet Volume 9.3 Monocytes # 0.4 Monocytes % 4.0 Neutrophils # 8.1 H Neutrophils % 88.0 H Nucleated Red Blood Cells # 0.0 Nucleated Red Blood Cells % 0.0 Phosphorus Level 4.9 Platelet Count 179 Red Blood Count 3.89 L Red Cell Distribution Width 13.5 Total Bilirubin 0.2 Total Protein 6.2 Triglycerides Level 100 White Blood Count 9.3 Test 04/27/16 06:00 04/27/16 08:08 Urine Bacteria FEW Urine Bilirubin NEGATIVE Urine Clarity CLEAR Urine Color LT. YELLOW Urine Epithelial Cells FEW Urine Glucose NEGATIVE Urine Hemoglobin 2+ H Urine Ketones NEGATIVE Urine Leukocyte Esterase 1+ H Urine Microscopic RBC 25-50 Urine Microscopic WBC 10-25 Urine Nitrite NEGATIVE Urine Specific [place] 1.020 Urine Total Protein NEGATIVE Urine Urobilinogen 0.2 E.U./dL Urine pH 6.0 Bedside Glucose 137 Medications Medications Current Medications Miscellaneous Information 1 ea NOTE XX ; Start 04/26/16 at 07:00; Stop 04/30/16 at 06:59 Atorvastatin Calcium (Lipitor) 10 mg QHS PO Last administered on 04/26/16 20: 52; Admin Dose 10 MG; Start 04/26/16 at 21:00 Glipizide (Glucotrol) 5 mg BID PO Last administered on 04/27/16 08:44; Admin Dose 5 MG; Start 04/26/16 at 21:00 Metoprolol Tartrate 25 mg 25 mg BID PO Last administered on 04/27/16 08:46; Admin Dose 25 MG; Start 04/26/16 at 21:00 Lactated Ringer's (Lr) 1,000 ml @ 125 mls/hr Q8H IV Last administered on 05:59; Admin Dose 125 MLS/HR; Start 04/26/16 at 16:56 Celecoxib 200 mg 200 mg DAILY PO Last administered on 04/27/16 08:44; Admin Dose 200 MG; Start 04/27/16 at 09:00 Acetaminophen (Ofirmev 1000mg/ 100ml Iv) 100 ml @ 400 mls/hr Q6 IVPB Last administered on 04/27/16 11:44; Admin Dose 400 MLS/HR; Start 04/26/16 at 18:00 ; Stop 04/27/16 at 17:59 Tramadol HCl (Ultram) 50 mg Q6 PO Last administered on 04/27/16 11:44; Admin Dose 50 MG; Start 04/26/16 at 12:00; Stop 04/29/16 at 11:59 Oxycodone HCl (Roxicodone) 5 mg Q4H PRN PO PAIN LEVEL 1-3; Start 04/26/16 at 17 :00 Oxycodone HCl (Roxicodone) 10 mg Q4H PRN PO PAIN LEVEL 4-7; Start 04/26/16 at 17:00 Hydromorphone HCl (Dilaudid) 1 mg Q3H PRN IV PAIN LEVEL 8-10; Start 04/26/16 at 17:00 Ondansetron HCl (Zofran Inj) 4 mg Q6H PRN IV NAUSEA AND/OR VOMITING; Start 03/31 at 17:00 Bisacodyl (Dulcolax Supp) 10 mg Q12H PRN [place] CONSTIPATION; Start 04/26/16 at 17: 00 Magnesium Hydroxide (Milk Of Mag) 30 ml BID PRN PO CONSTIPATION; Start at 17:00 Sodium Biphosphate/ Sodium Phosphate (Fleet Enema) 133 ml DAILY PRN [place] CONSTIPATION; Start 04/26/16 at 17:00 Docusate Sodium (Colace) 100 mg BID PO Last administered on 04/27/16 08:44; Admin Dose 100 MG; Start 04/26/16 at 21:00 Diphenhydramine HCl (Benadryl) 25 mg Q6H PRN PO PRURITUS; Start 04/26/16 at 17: 00 Aspirin (Ecotrin) 325 mg BID PO Last administered on 04/27/16 08:44; Admin Dose 325 MG; Start 04/27/16 at 09:00 Pantoprazole (Protonix Tab) 40 mg BID@06,18 PO Last administered on 04/27/16 05:46; Admin Dose 40 MG; Start 04/26/16 at 18:00 Pregabalin (Lyrica) 50 mg BID PO Last administered on 04/27/16 08:58; Admin Dose 50 MG; Start 04/26/16 at 21:00 Nitrofurantoin Macrocrystals (Macrobid) 100 mg BID PO Last administered on 04/27 08:44; Admin Dose 100 MG; Start 04/26/16 at 21:00; Stop 05/03/16 at 20:59 Hydralazine HCl (Apresoline) 10 mg Q6H PRN IV SBP>160; Start 04/26/16 at 18:00 Miscellaneous Information 1 ea NOTE XX ; Start 04/27/16 at 07:30 Glucose (Glutose) 15 gm Q15M PRN PO DECREASED GLUCOSE; Start 04/27/16 at 07:30 Glucose (Glutose) 22.5 gm Q15M PRN PO DECREASED GLUCOSE; Start 04/27/16 at 07: 30 Dextrose (D50w Syringe) 25 ml Q15M PRN IV DECREASED GLUCOSE; Start 04/27/16 at 07:30 Dextrose (D50w Syringe) 50 ml Q15M PRN IV DECREASED GLUCOSE; Start 04/27/16 at 07:30 Glucagon (Glucagen) 1 mg Q15M PRN IM DECREASED GLUCOSE; Start 04/27/16 at 07:30 Glucose (Glutose) 15 gm Q15M PRN BUCCAL DECREASED GLUCOSE; Start 04/27/16 at 07 :30 DEX GOMEZ MD Apr 27, 2016 12:57
[2016-04-27] MEDS: ATORVASTATIN 10 MG TAB PO SCH (21:18)
[2016-04-27 22:04] VITALS: BP 145/65; RESP 20
[2016-04-28] VITALS (8 sets, daily range): BP systolic 79–214; BP diastolic 49–91; PULSE 67–86; RESP 18–20
[2016-04-28] MEDS: traMADol 50 MG TAB PO SCH ×4 (00:31→17:55)
[2016-04-28] MEDS: LACTATED RINGER'S 1,000 ML IV SCH ×3 (00:56→17:57)
[2016-04-28 05:31] LABS: POTASSIUM 4.8 mmol/L (3.5-5.1)
[2016-04-28 05:33] LABS: CREATININE 0.81 mg/dl (0.44-1.00)
[2016-04-28] MEDS: PANTOPRAZOLE (EC) 40 MG TAB PO SCH ×2 (06:04→17:55)
[2016-04-28 07:09] LABS: HEMATOCRIT 32.3 % (37.0-47.0); HEMOGLOBIN 10.9 g/dl (12.0-16.0)
[2016-04-28] MEDS: DOCUSATE SODIUM 100 MG CAP PO SCH ×2 (08:14→21:27)
[2016-04-28] MEDS: PREGABALIN 25 MG CAP PO SCH ×2 (08:15→21:27)
[2016-04-28] MEDS: ASPIRIN (EC) 325 MG TAB PO SCH ×2 (08:15→21:27)
[2016-04-28] MEDS: CELECOXIB 200 MG CAP PO SCH (08:15)
[2016-04-28] MEDS: NITROFURANTOIN (SR) 100 MG CAP PO SCH ×2 (08:15→21:27)
[2016-04-28] MEDS: METOPROLOL 25 MG TAB PO SCH ×2 (08:15→19:43)
[2016-04-28] MEDS: glipiZIDE 5 MG TAB PO SCH ×2 (08:16→21:28)
--- NOTE | 2016-04-28 09:48 | PN ---
Date/Time of Note Date/Time of Note DATE: 04/28/16 TIME: 09:46 Assessment/Plan VTE Prophylaxis VTE Prophylaxis Intervention: other (Aspirin as per orthopedic surgery) Lines/Catheters IV [facility] Type (from [facility] Peripheral IV Urinary Cath still in place: No Assessment/Plan Chief Complaint/Hosp Course 1. Left knee osteoarthritis. Status post left total knee arthroplasty on 04/26. Continue postoperative care. Continue pain management as per Surgery. Continue PT. 2. Essential hypertension. Continue routine antihypertensives and p.r.n. antihypertensives for any systolic blood pressure readings greater than 160 mmHg. 3. History of coronary artery disease. Status post stenting in the past. The patient will be continued on aspirin. 4. Dyslipidemia. The patient will be continued on her statins. Fasting lipid panel satisfactory. A low-cholesterol diet will be reinforced. 5. Type 2 diabetes mellitus. Hemoglobin A1C 6.6. On sulfonylureas. 6. Hyperkalemia. Resolved. 7. Permanent pacemaker. As per the family, the patient has a permanent pacemaker in place. However, the 12-lead EKG showing normal sinus rhythm and no pacer spikes. Denies any cardiac complaints. Monitor. 8. Fluids, electrolytes, and nutrition. Carbohydrate controlled, low- cholesterol diet. 9. DVT prophylaxis. Aspirin as per orthopedic surgery. 10. Gastrointestinal prophylaxis. Proton pump inhibitors. 11. Plan. Give 500 mL of normal saline IV bolus. Monitor blood pressure closely. Continue surgical management as per orthopedic surgery. Thank you for the consult. Case discussed with Dr. Garcia. Problems: Subjective 24 Hr Interval Summary Free Text/Dictation The patient had an episode of orthostatic hypotension in the morning. The patient's blood sugars were slightly on the lower side. Patient denied any chest pain. Exam/Review of Systems Vital Signs Vitals Vital Signs Date Time Temp Pulse Resp B/P Pulse Ox O2 Delivery O2 Flow Rate FiO2 04/28/16 08:05 97.3 61 20 137/65 96 04/27/16 05:00 Nasal Cannula 04/26/16 19:40 2.0 Intake and Output 04/27/16 04/27/16 04/28/16 14:59 22:59 06:59 Intake Total 2880 ml 2400 ml Balance 2880 ml 2400 ml Exam GENERAL: This is an obese Citizen Of [place] female lying in bed in no apparent distress. HEENT: Head normocephalic and atraumatic. Eyes: Anicteric sclerae. Conjunctivae clear. ENT: Nasal septum is midline. Oral mucosa is dry. NECK: Supple. No JVD noticed. RESPIRATORY: Bilaterally clear to auscultation. No adventitious breath sounds heard. No use of accessory muscles of respiration. CARDIAC: Regular rate and rhythm. S1, S2 heard. ABDOMEN: Soft, nontender and nondistended. Bowel sounds hypoactive in all 4 quadrants. GENITOURINARY: The patient has Sanchez catheter in place. EXTREMITIES: Left knee joint surgical dressing. Left lower extremity dorsalis pedis and posterior tibial pulses palpable. Right lower extremity within normal limits. NEUROLOGIC: The patient is awake, alert, and oriented. No focal deficits. Results Result Diagram: 04/28/16 0530 04/28/16 0430 Results 24 hrs Laboratory Tests Test 04/27/16 14:10 04/27/16 21:22 04/28/16 04:30 04/28/16 05:30 Potassium Level 4.7 4.8 Bedside Glucose 178 Anion Gap 15 Blood Urea Nitrogen 22 H Calcium Level 9.0 Carbon Dioxide Level 27 Chloride Level 101 Creatinine 0.81 Glucose Level 66 #L Magnesium Level 1.9 Sodium Level 138 Hematocrit 32.3 L Hemoglobin 10.9 L Test 04/28/16 09:22 Bedside Glucose 77 Medications Medications Current Medications Miscellaneous Information 1 ea NOTE XX ; Start 04/26/16 at 07:00; Stop 04/30/16 at 06:59 Atorvastatin Calcium (Lipitor) 10 mg QHS PO Last administered on 04/27/16 21: 18; Admin Dose 10 MG; Start 04/26/16 at 21:00 Glipizide (Glucotrol) 5 mg BID PO Last administered on 04/28/16 08:16; Admin Dose 5 MG; Start 04/26/16 at 21:00 Metoprolol Tartrate 25 mg 25 mg BID PO Last administered on 04/28/16 08:15; Admin Dose 25 MG; Start 04/26/16 at 21:00 Lactated Ringer's (Lr) 1,000 ml @ 125 mls/hr Q8H IV Last administered on 06:05; Admin Dose 125 MLS/HR; Start 04/26/16 at 16:56 Celecoxib (Celebrex) 200 mg DAILY PO Last administered on 04/28/16 08:15; Admin Dose 200 MG; Start 04/27/16 at 09:00 Tramadol HCl (Ultram) 50 mg Q6 PO Last administered on 04/28/16 06:05; Admin Dose 50 MG; Start 04/26/16 at 12:00; Stop 04/29/16 at 11:59 Oxycodone HCl (Roxicodone) 5 mg Q4H PRN PO PAIN LEVEL 1-3; Start 04/26/16 at 17 :00 Oxycodone HCl (Roxicodone) 10 mg Q4H PRN PO PAIN LEVEL 4-7; Start 04/26/16 at 17:00 Hydromorphone HCl (Dilaudid) 1 mg Q3H PRN IV PAIN LEVEL 8-10; Start 04/26/16 at 17:00 Ondansetron HCl (Zofran Inj) 4 mg Q6H PRN IV NAUSEA AND/OR VOMITING; Start 03/31 at 17:00 Bisacodyl (Dulcolax Supp) 10 mg Q12H PRN [place] CONSTIPATION; Start 04/26/16 at 17: 00 Magnesium Hydroxide (Milk Of Mag) 30 ml BID PRN PO CONSTIPATION; Start at 17:00 Sodium Biphosphate/ Sodium Phosphate (Fleet Enema) 133 ml DAILY PRN [place] CONSTIPATION; Start 04/26/16 at 17:00 Docusate Sodium (Colace) 100 mg BID PO Last administered on 04/28/16 08:14; Admin Dose 100 MG; Start 04/26/16 at 21:00 Diphenhydramine HCl (Benadryl) 25 mg Q6H PRN PO PRURITUS; Start 04/26/16 at 17: 00 Aspirin (Ecotrin) 325 mg BID PO Last administered on 04/28/16 08:15; Admin Dose 325 MG; Start 04/27/16 at 09:00 Pantoprazole (Protonix Tab) 40 mg BID@18 PO Last administered on 04/28/16 06:04; Admin Dose 40 MG; Start 04/26/16 at 18:00 Pregabalin (Lyrica) 50 mg BID PO Last administered on 04/28/16 08:15; Admin Dose 50 MG; Start 04/26/16 at 21:00 Nitrofurantoin Macrocrystals (Macrobid) 100 mg BID PO Last administered on 04/28t 08:15; Admin Dose 100 MG; Start 04/26/16 at 21:00; Stop 05/03/16 at 20:59 Hydralazine HCl (Apresoline) 10 mg Q6H PRN IV SBP>160; Start 04/26/16 at 18:00 Miscellaneous Information 1 ea NOTE XX ; Start 04/27/16 at 07:30 Glucose (Glutose) 15 gm Q15M PRN PO DECREASED GLUCOSE; Start 04/27/16 at 07:30 Glucose (Glutose) 22.5 gm Q15M PRN PO DECREASED GLUCOSE; Start 04/27/16 at 07: 30 Dextrose (D50w Syringe) 25 ml Q15M PRN IV DECREASED GLUCOSE; Start 04/27/16 at 07:30 Dextrose (D50w Syringe) 50 ml Q15M PRN IV DECREASED GLUCOSE; Start 04/27/16 at 07:30 Glucagon (Glucagen) 1 mg Q15M PRN IM DECREASED GLUCOSE; Start 04/27/16 at 07:30 Glucose (Glutose) 15 gm Q15M PRN BUCCAL DECREASED GLUCOSE; Start 04/27/16 at 07 :30 NYASIA TRUJILLO NP Apr 28, 2016 09:48
[2016-04-28] MEDS ORDERED: SOD CHLORIDE 0.9% 500 ML IV ONE (10:00)
--- NOTE | 2016-04-28 11:48 | PN ---
Date/Time of Note Date/Time of Note DATE: 04/28/16 TIME: 11:46 Assessment/Plan Lines/Catheters IV Catheter Type (from Nrsg): Peripheral IV Sanchez in Place (from Nrsg): No Assessment/Plan Assessment/Plan POD # 2. Stable. -Encouraged patient to ask for pain meds. Will have her take Desha instead of Oxycodone -If doing better with PT today and pain better controlled, plan for d/c to home tomorrow. Otherwise, will need to go to SNF tomorrow. -OOB with PT -E.C. ASA 325 mg po bid -Bilateral LE SCDs -F/u with me on 05/07/16 Subjective 24 Hr Interval Summary Has had increased pain today but not asking for pain meds. Also, became vasovagal when she stood with PT. Better now after fluid bolus. Exam/Review of Systems Vital Signs Vitals Vital Signs Date Time Temp Pulse Resp B/P Pulse Ox O2 Delivery O2 Flow Rate FiO2 04/28/16 09:40 18 111/60 04/28/16 09:30 86 04/28/16 08:05 97.3 96 04/27/16 05:00 Nasal Cannula 04/26/16 19:40 2.0 Intake and Output 04/27/16 04/27/16 04/28/16 15:00 23:00 07:00 Intake Total 2880 ml 2400 ml Balance 2880 ml 2400 ml Exam Free Text/Dictation Dressing dry Incision clean, dry, and intact without redness or drainage 5/5 Tibialis Anterior, EHL, Gastroc Soleus, Peroneals Normal sensation Palpable DP/PT, CR < 2 Sec No distal edema Results Result Diagram: 04/28/16 0530 04/28/16 0430 PRECIOUS MURILLO MD Apr 28, 2016 11:48
[2016-04-28] MEDS ORDERED: HYDR-905 PO (11:54)
[2016-04-28] MEDS ORDERED: HYDROCODONE/APAP (7.5/325) TAB PO PRN (12:00)
[2016-04-28] MEDS: HYDROCODONE/APAP (7.5/325) TAB PO PRN ×2 (12:34→19:48)
[2016-04-28] MEDS: ATORVASTATIN 10 MG TAB PO SCH (21:28)
[2016-04-29] VITALS: BP 146/66; PULSE 73; RESP 18
[2016-04-29] MEDS: traMADol 50 MG TAB PO SCH ×2 (00:01→05:57)
[2016-04-29] MEDS: LACTATED RINGER'S 1,000 ML IV SCH (00:56)
[2016-04-29 05:14] LABS: HEMATOCRIT 31.7 % (37.0-47.0); HEMOGLOBIN 10.7 g/dl (12.0-16.0)
[2016-04-29 05:36] LABS: POTASSIUM 4.5 mmol/L (3.5-5.1)
[2016-04-29 05:39] LABS: CALCIUM 8.4 mg/dl (8.4-10.2); CREATININE 0.73 mg/dl (0.44-1.00)
[2016-04-29 05:55] VITALS: BP 137/63; PULSE 97; RESP 18
[2016-04-29] MEDS: PANTOPRAZOLE (EC) 40 MG TAB PO SCH (05:56)
[2016-04-29 07:57] VITALS: BP 118/58; RESP 20
[2016-04-29] MEDS: ASPIRIN (EC) 325 MG TAB PO SCH (08:49)
[2016-04-29] MEDS: DOCUSATE SODIUM 100 MG CAP PO SCH (08:49)
[2016-04-29] MEDS: glipiZIDE 5 MG TAB PO SCH (08:49)
[2016-04-29] MEDS: CELECOXIB 200 MG CAP PO SCH (08:49)
[2016-04-29] MEDS: NITROFURANTOIN (SR) 100 MG CAP PO SCH (08:51)
[2016-04-29] MEDS: METOPROLOL 25 MG TAB PO SCH (08:51)
[2016-04-29] MEDS: PREGABALIN 25 MG CAP PO SCH (08:54)
--- NOTE | 2016-04-29 09:24 | PN ---
Date/Time of Note Date/Time of Note DATE: 04/29/16 TIME: 09:22 Assessment/Plan VTE Prophylaxis VTE Prophylaxis Intervention: other (Aspirin as per orthopedic surgery.) Lines/Catheters IV Catheter Type (from [facility]): Peripheral IV Urinary Cath still in place: No Assessment/Plan Chief Complaint/Hosp Course 1. Left knee osteoarthritis. Status post left total knee arthroplasty on 04/26. Continue postoperative care. Continue pain management as per Surgery. Continue PT. 2. Essential hypertension. Continue routine antihypertensives and p.r.n. antihypertensives for any systolic blood pressure readings greater than 160 mmHg. 3. History of coronary artery disease. Status post stenting in the past. The patient will be continued on aspirin. 4. Dyslipidemia. The patient will be continued on her statins. Fasting lipid panel satisfactory. A low-cholesterol diet will be reinforced. 5. Type 2 diabetes mellitus. Hemoglobin A1C 6.6. On sulfonylureas. 6. Hyperkalemia. Resolved. 7. Permanent pacemaker. As per the family, the patient has a permanent pacemaker in place. However, the 12-lead EKG showing normal sinus rhythm and no pacer spikes. Denies any cardiac complaints. Monitor. 8. Fluids, electrolytes, and nutrition. Carbohydrate controlled, low- cholesterol diet. 9. DVT prophylaxis. Aspirin as per orthopedic surgery. 10. Gastrointestinal prophylaxis. Proton pump inhibitors. 11. Plan. The patient remains medically stable. The patient is medically stable to be discharged home once cleared by orthopedic surgery. Thank you for the consult. Case discussed with Dr. Garcia. Problems: Subjective 24 Hr Interval Summary Free Text/Dictation Patient doing well. Vital signs stable. Exam/Review of Systems Vital Signs Vitals Vital Signs Date Time Temp Pulse Resp B/P Pulse Ox O2 Delivery O2 Flow Rate FiO2 04/29/16 07:57 98.1 67 20 118/58 98 04/29/16 05:55 Room Air 04/26/16 19:40 2.0 Intake and Output 04/28/16 04/28/16 04/29/16 15:00 23:00 07:00 Intake Total 3120 ml 1700 ml Balance 3120 ml 1700 ml Exam GENERAL: This is an obese [place] female lying in bed in no apparent distress. HEENT: Head normocephalic and atraumatic. Eyes: Anicteric sclerae. Conjunctivae clear. ENT: Nasal septum is midline. Oral mucosa is dry. NECK: Supple. No JVD noticed. RESPIRATORY: Bilaterally clear to auscultation. No adventitious breath sounds heard. No use of accessory muscles of respiration. CARDIAC: Regular rate and rhythm. S1, S2 heard. ABDOMEN: Soft, nontender and nondistended. Bowel sounds hypoactive in all 4 quadrants. GENITOURINARY: The patient has Sanchez catheter in place. EXTREMITIES: Left knee joint surgical dressing. Left lower extremity dorsalis pedis and posterior tibial pulses palpable. Right lower extremity within normal limits. NEUROLOGIC: The patient is awake, alert, and oriented. No focal deficits. Results Result Diagram: 04/29/16 0420 04/29/16 0420 Results 24 hrs Laboratory Tests Test 04/28/16 21:33 04/29/16 04:20 04/29/16 08:14 Bedside Glucose 242 H 175 Anion Gap 13 Blood Urea Nitrogen 20 Calcium Level 8.4 Carbon Dioxide Level 29 Chloride Level 100 Creatinine 0.73 Glucose Level 136 # Hematocrit 31.7 L Hemoglobin 10.7 L Magnesium Level 1.8 Potassium Level 4.5 Sodium Level 137 Medications Medications Current Medications Miscellaneous Information 1 ea NOTE XX ; Start 04/26/16 at 07:00; Stop 04/30/16 at 06:59 Atorvastatin Calcium (Lipitor) 10 mg QHS PO Last administered on 04/28/16 21: 28; Admin Dose 10 MG; Start 04/26/16 at 21:00 Glipizide (Glucotrol) 5 mg BID PO Last administered on 04/29/16 08:49; Admin Dose 5 MG; Start 04/26/16 at 21:00 Metoprolol Tartrate 25 mg 25 mg BID PO Last administered on 04/29/16 08:51; Admin Dose 25 MG; Start 04/26/16 at 21:00 Lactated Ringer's (Lr) 1,000 ml @ 125 mls/hr Q8H IV Last administered on 17:57; Admin Dose 125 MLS/HR; Start 04/26/16 at 16:56 Celecoxib (Celebrex) 200 mg DAILY PO Last administered on 04/29/16 08:49; Admin Dose 200 MG; Start 04/27/16 at 09:00 Tramadol HCl (Ultram) 50 mg Q6 PO Last administered on 04/29/16 05:57; Admin Dose 50 MG; Start 04/26/16 at 12:00; Stop 04/29/16 at 11:59 Hydromorphone HCl (Dilaudid) 1 mg Q3H PRN IV PAIN LEVEL 8-10; Start 04/26/16 at 17:00 Ondansetron HCl (Zofran Inj) 4 mg Q6H PRN IV NAUSEA AND/OR VOMITING; Start 03/31 at 17:00 Bisacodyl (Dulcolax Supp) 10 mg Q12H PRN AL CONSTIPATION; Start 04/26/16 at 17: 00 Magnesium Hydroxide (Milk Of Mag) 30 ml BID PRN PO CONSTIPATION; Start at 17:00 Sodium Biphosphate/ Sodium Phosphate (Fleet Enema) 133 ml DAILY PRN AL CONSTIPATION; Start 04/26/16 at 17:00 Docusate Sodium (Colace) 100 mg BID PO Last administered on 04/29/16 08:49; Admin Dose 100 MG; Start 04/26/16 at 21:00 Diphenhydramine HCl (Benadryl) 25 mg Q6H PRN PO PRURITUS; Start 04/26/16 at 17: 00 Aspirin (Ecotrin) 325 mg BID PO Last administered on 04/29/16 08:49; Admin Dose 325 MG; Start 04/27/16 at 09:00 Pantoprazole (Protonix Tab) 40 mg BID@06,18 PO Last administered on 04/29/16 05:56; Admin Dose 40 MG; Start 04/26/16 at 18:00 Pregabalin (Lyrica) 50 mg BID PO Last administered on 04/29/16 08:54; Admin Dose 50 MG; Start 04/26/16 at 21:00 Nitrofurantoin Macrocrystals (Macrobid) 100 mg BID PO Last administered on 04/29 08:51; Admin Dose 100 MG; Start 04/26/16 at 21:00; Stop 05/03/16 at 20:59 Hydralazine HCl (Apresoline) 10 mg Q6H PRN IV SBP>160 Last administered on 04/28 19:43; Admin Dose 10 MG; Start 04/26/16 at 18:00 Miscellaneous Information 1 ea NOTE XX ; Start 04/27/16 at 07:30 Glucose (Glutose) 15 gm Q15M PRN PO DECREASED GLUCOSE; Start 04/27/16 at 07:30 Glucose (Glutose) 22.5 gm Q15M PRN PO DECREASED GLUCOSE; Start 04/27/16 at 07: 30 Dextrose (D50w Syringe) 25 ml Q15M PRN IV DECREASED GLUCOSE; Start 04/27/16 at 07:30 Dextrose (D50w Syringe) 50 ml Q15M PRN IV DECREASED GLUCOSE; Start 04/27/16 at 07:30 Glucagon (Glucagen) 1 mg Q15M PRN IM DECREASED GLUCOSE; Start 04/27/16 at 07:30 Glucose (Glutose) 15 gm Q15M PRN BUCCAL DECREASED GLUCOSE; Start 04/27/16 at 07 :30 Acetaminophen/ Hydrocodone Bitart ([place] (7.5-325)) 1 tab Q4H PRN PO MILD PAIN LEVEL 1-3 Last administered on 04/28/16 19:48; Admin Dose 1 TAB; Start at 12:00 Acetaminophen/ Hydrocodone Bitart ([place] (7.5-325)) 2 tab Q4H PRN PO MODERATE PAIN LEVEL 4-6 Last administered on 04/29/16 03:24; Admin Dose 2 TAB; Start at 12:00 NYASIA TRUJILLO NP Apr 29, 2016 09:23
--- NOTE | 2016-04-29 15:47 | PN ---
DATE: 04/29/2016 HISTORY OF PRESENT ILLNESS: The patient's 3rd day out from a left total knee replacement. She comp lains of a great deal of pain. She was supposed to go home today. She wants to go to a convalescen facility. PHYSICAL EXAMINATION: The wound looks excellent. Dressings are changed. Temperature is normal. LABORATORIES: Hemoglobin is 10.7. ASSESSMENT: The patient is being transferred to convalescent facility and will be seen by Dr. Christopher pearce in 2 weeks' time. Dictated By: TROY AMADO/LB Conf#: [id number] DID#: [id number]
--- NOTE | 2016-04-29 21:41 | DS ---
DATE OF ADMISSION: 04/26/2016 DATE OF DISCHARGE: 04/29/2016 CONDITION UPON DISCHARGE: Stable. ADMITTING DIAGNOSIS: Left knee pain secondary to advanced osteoarthritis. DISCHARGE DIAGNOSIS: Status post left total knee arthroplasty. PROCEDURE PERFORMED: Left total knee arthroplasty. HOSPITAL COURSE: This is a 66-year-old female seen in the clinic initially complaining of left knee pain. Radiographically, she was noted to have advanced osteoarthritis of bilateral knees, left gre ater than right. She had undergone conservative modalities previously unsuccessfully, and it was th ought she would benefit from a left total knee arthroplasty. On 04/26/2016, the patient was admitte d and taken to the operating room where she underwent a left total knee arthroplasty. There were no intraoperative complications. The patient tolerated the procedure well. She was taken to the sean very room in stable condition. Pain was well controlled with oral pain medication. She was started on aspirin and SCDs for DVT prophylaxis. She remained hemodynamically stable and neurovascularly i ntact throughout her hospital stay. She began physical therapy on postoperative day 1 and continued to make good progress on postoperative day 2 and 3. She developed increased pain to the left knee. The patient is not asking for pain medication, however. She continued to have left knee pain and it was thought she would benefit from going to a usp facility versus home. On postopera tive day 3, the patient was transferred to a usp facility. Prior to discharge, common t he incision was inspected and noted to be clean, dry, and intact. Dressing changes were done prior to the patient being transferred. LABORATORY ANALYSIS UPON DISCHARGE: Hemoglobin 10.7, hematocrit 31.7. Chemistry panel was within n ormal limits. DISCHARGE MEDICATIONS: 1. Chauvin 7.5/325 mg. 2. Tramadol 50 mg. 3. Lyrica 50 mg. 4. Protonix 40 mg. 5. Aspirin 325 mg. In addition, the patient is to resume all her normal home medication. DISCHARGE INSTRUCTIONS: The patient will be transferred to a usp facility. She is to r esume her normal diet. Activities include weightbearing as tolerated on the left lower extremity. She is to begin PT while at the nursing facility. She will be sent over with the medications noted above. Additionally, she is to resume all her normal home medication. She is to call the office or return to the emergency room for any concerns including increased redness, swelling, drainage, feve r, or any concerns regarding the operation or site of incision. FOLLOWUP: The patient is to follow up in the office with Dr. Bolanos on 05/07/2016. Dictated By: BLAIR MCLAIN for PRECIOUS PHILLIP/LB Conf#: [id number] DID#: [id number]
--- NOTE | 2016-05-01 10:55 | RADRPT ---
Vent Rate: 63 bpm RR Interval: 0 msec OK Interval: 170 msec QRS Duration: 106 msec QT Interval: 414 msec QTC Interval: 423 msec P-R-T [place]: 51 - 14 - 96 degrees Normal sinus rhythm Cannot rule out Anterior infarct , age undetermined Abnormal ECG Electronically Signed By: Andrae Waldron [id number]
== END 2016-04-29 14:30 | disposition home health service (06) | DRG 470 ==
LOC: REC 09:49 → MS1 18:41
PROVIDERS: ADMIT Orthopaedic Surgery; ATTEND Orthopaedic Surgery
PROC: 0SRD0J9 Replacement of Left Knee Joint with Synthetic Substitute, Cemented, Open Approach (ICD-10-PCS; principal; 2016-04-26 13:00)
DX: M17.12 Unilateral primary osteoarthritis, left knee (principal); E87.5 Hyperkalemia; I10 Essential (primary) hypertension; E78.5 Hyperlipidemia, unspecified; E11.9 Type 2 diabetes mellitus without complications; I25.10 Atherosclerotic heart disease of native coronary artery without angina pectoris; Z95.5 Presence of coronary angioplasty implant and graft; Z95.0 Presence of cardiac pacemaker
CPT/HCPCS: 73560; 80048; 80053; 80061; 81001; 81003; 82962; 83036; 83735; 84100; 84132; 85014; 85018; 85025; 86850; 86900; 86901; 86920; 87081; 87086; 88304; 88311; 93005; 97110; 97116; 97162; 97165; 97530; Z7610; C1776; J0131; J0171; J0360; J0690; J0697; J0735; J1100; J1885; J2001; J2250; J2274; J2405; J2765; J3370; J7040; J7120

== ENCOUNTER → 2016-05-02 | Outpatient (CLI) | payer OTHER ==
[~2016-05-02] MED LIST changes: -ASPI81TA3 PO
--- NOTE | 2016-05-02 21:11 | HKNOTE ---
DATE OF SERVICE: 05/02/2016 INTERVAL HISTORY: The patient presented today for a followup evaluation on her left knee. She is 6 days status post left total knee arthroplasty. She called the office yesterday concerned about the discomfort around her knee. I advised her to come into the office for evaluation. She has had a home health evaluation, but has not begun physical therapy yet. She denies any fevers or chills. No pus or drainage from the incision. She is having some normal postoperative pain. She states she walked approximately 500 feet with her yesterday using a walker. She presents today for evaluation. PHYSICAL EXAMINATION: GENERAL: On exam today, she is alert and oriented x4 and in no acute distress. KNEE: There is some mild postoperative soft tissue swelling. The incision is clean, dry, well healing. Prineo Dermabond dressing is place. No pus or drainage. No erythema or warmth. Rocio's sign is negative. She has no calf pain or tenderness. Neurovascular status intact distally. IMAGING DATA: None done today. ASSESSMENT: Six days status post left total knee arthroplasty. PLAN: 1. Ice and elevate the left lower extremity. 2. Begin gentle range of motion with flexion and extension. 3. Begin home physical therapy. 4. Take pain meds as needed. 5. Aspirin 325 mg b.i.d. 6. Continue use of SCDs. 7. Follow up with Dr. Naqvi on 05/07/2016 as planned. Dictated By: BLAIR MURILLO PA for PRECIOUS PHILLIP/LB Conf#: [id number] DID#: [id number] MTDD
== END | disposition home or self-care (01) ==
LOC: HKI 08:35
PROVIDERS: ATTEND Orthopaedic Surgery
DX: Z47.1 Aftercare following joint replacement surgery (principal); Z96.652 Presence of left artificial knee joint

== ENCOUNTER → 2016-05-07 | Outpatient (CLI) | payer OTHER ==
[~2016-05-07] MED LIST changes: +TRAM50TA2 PO; -ULT50 PO
--- NOTE | 2016-05-07 10:22 | RADRPT ---
PROCEDURE: XR left knee. CLINICAL INDICATION: Knee pain. TECHNIQUE: AP and lateral views are available for review. COMPARISON: 04/26/2016 FINDINGS: There is a total knee replacement. There is no evidence of loosening of the prosthesis. The osseous structures are normal in mineralization, architecture and alignment No acute fracture or dislocation is seen.No osseous lesions are identified. The soft tissues are unremarkable . IMPRESSION: Unremarkable total knee replacement. RPTAT: HGDB .Ray Degroot MD, MD Date Time Electronically viewed and signed by .Ray Degroot MD, MD on 05/07/2016 10:21 .B/
--- NOTE | 2016-05-07 11:04 | HKNOTE ---
DATE OF SERVICE: 05/07/2016 INTERVAL HISTORY: The patient was in today for a followup evaluation on her left knee. She is now 11 days status post left total knee arthroplasty. She is still having moderate pain. She has been guarded somewhat by her family at home, and has been reluctant to do physical therapy secondary to pain. She has only been taking 1 [place] for the pain, however. Her swelling has improved overall. She denies any fevers or chills. She presents today for a followup evaluation. PHYSICAL EXAMINATION: On exam today she is alert and oriented x4, and in mild distress due to pain. The incision to be clean, dry and intact. Prineo is in place. There is no erythema or warmth. There is some mild postoperative soft tissue swelling. Range of motion is 0-90 degrees. Rocio's sign is negative. There is no calf pain or tenderness. Compartments are soft. She is neurovascularly intact distally. IMAGING: X-rays were obtained today and reviewed by me. They show good alignment of the femoral and tibial components. There is no evidence of hardware loosening. No fracture is identified. ASSESSMENT: The patient is 11 days status post left total knee arthroplasty. PLAN: 1. Tramadol 50 mg quantity #60 refill given today. 2. Continue aspirin 325 mg b.i.d. for DVT prophylaxis. 3. I stressed the importance of pushing through some pain with physical therapy to improve her range of motion. 4. She should continue home physical therapy and will transition to outpatient physical therapy. 5. Followup in 4 weeks for repeat evaluation. Dictated By: BLAIR MCLAIN for PRECIOUS PHILLIP/LB Conf#: [id number] DID#: [id number] MTDD
== END | disposition home or self-care (01) ==
LOC: HKI 09:43
PROVIDERS: ATTEND Orthopaedic Surgery
DX: Z47.1 Aftercare following joint replacement surgery (principal); Z96.652 Presence of left artificial knee joint
CPT/HCPCS: 73560; Z7500; G0463

== ENCOUNTER → 2016-06-04 | Outpatient (CLI) | payer OTHER | END | disposition home or self-care (01) | LOC: HKI 08:50 | PROVIDERS: ATTEND Orthopaedic Surgery | DX: M17.12 Unilateral primary osteoarthritis, left knee (principal); M17.11 Unilateral primary osteoarthritis, right knee; M25.561 Pain in right knee; Z96.652 Presence of left artificial knee joint ==

== ENCOUNTER → 2016-07-16 | Outpatient (CLI) | payer OTHER ==
--- NOTE | 2016-07-16 09:52 | RADRPT ---
PROCEDURE: XR left knee. CLINICAL INDICATION: Knee pain. TECHNIQUE: AP weightbearing, lateral weightbearing and sunrise views are available for review. COMPARISON: 05/07/2016 FINDINGS: There is a total knee replacement. There is no evidence of loosening of the prosthesis. There is no evidence of hardware failure. The osseous structures are normal in mineralization, architecture and alignment No acute fracture or dislocation is seen.No osseous lesions are identified. The soft tiss ues are unremarkable . IMPRESSION: Unremarkable total knee replacement. RPTAT: HGDB .Ray Degroot MD, MD Date Time Electronically viewed and signed by .Ray Degroot MD, MD on 07/16/2016 09:51 .B/
== END | disposition home or self-care (01) ==
LOC: HKI 08:44
PROVIDERS: ATTEND Orthopaedic Surgery
DX: Z47.1 Aftercare following joint replacement surgery (principal); Z96.652 Presence of left artificial knee joint; M17.11 Unilateral primary osteoarthritis, right knee

== ENCOUNTER → 2016-07-30 | Outpatient (CLI) | payer OTHER ==
[~2016-07-30] MED LIST changes: +ASPI-664 PO; +ASPI81TA3 PO; +LOSA50TA6 PO; +MTF1000T PO
--- NOTE | 2016-07-30 12:02 | RADRPT ---
PROCEDURE: Limited x-ray of both lower extremities. CLINICAL INDICATION: Bilateral leg pain. TECHNIQUE: Single frontal view of both lower extremities was obtained from the hips to the calves. COMPARISON: 04/20/2016. FINDINGS: The hips are not well seen due to overlying soft tissues. There are severe degenerative changes of the right knee with joint space narrowing, osteophytes, and varus deformity. There is a total left knee arthroplasty. IMPRESSION: 1. Severe degenerative changes of the right knee. 2. Postoperative changes of the left knee. RPTAT: QQ .Isaac Cha MD, MD Date Time Electronically viewed and signed by .Isaac Cha MD, on 07/30/2016 12:01 .R/
== END | disposition home or self-care (01) ==
LOC: HKI 09:06
PROVIDERS: ATTEND Orthopaedic Surgery
DX: Z01.818 Encounter for other preprocedural examination (principal); M17.11 Unilateral primary osteoarthritis, right knee; M25.561 Pain in right knee; Z96.652 Presence of left artificial knee joint; I10 Essential (primary) hypertension; E11.9 Type 2 diabetes mellitus without complications; E78.00 Pure hypercholesterolemia, unspecified; Z95.0 Presence of cardiac pacemaker
CPT/HCPCS: 77073; Z7500; 87081; G0463

== ENCOUNTER 2016-08-02 10:03 | Inpatient (IN) | payer OTHER ==
[2016-08-02] VITALS (28 sets, daily range): BP systolic 107–178; BP diastolic 44–82; PULSE 63–92; RESP 10–24; Ht 149.9 cm; Wt 74.0 kg
[~2016-08-02] VITALS: Ht 149.9 cm; Wt 74.0 kg
[~2016-08-02 10:03] MED LIST changes: -ASPI-664 PO; -ASPI81TA3 PO; +CEFAZOLIN 1 GM INJ ONE; -LOSA50TA6 PO; -MTF1000T PO
[2016-08-02] MEDS ORDERED: SOD CHLORIDE 0.9% IV ONE (11:00)
[2016-08-02] MEDS ORDERED: oxyCODONE (CR) 10 MG TAB [oxyCONTIN] X1 DOSE PO ONE (11:00)
[2016-08-02] MEDS ORDERED: CEFAZOLIN 2GM/50 ML (PMX) 50 ML X1 BEFORE INCISION IVPB ONE (11:00)
[2016-08-02] MEDS ORDERED: PAIN COCKTAIL-CEFUROXIME IRR ONE ×7 (11:00)
[2016-08-02] MEDS ORDERED: CELECOXIB 400 MG PO X1 DOSE PO ONE (11:00)
[2016-08-02] MEDS ORDERED: PREGABALIN 300 MG PO X1 PO ONE (11:00)
[2016-08-02] MEDS ORDERED: traMADOL 50 MG TAB X 1 DOSE PO ONE (11:00)
[2016-08-02] MEDS ORDERED: TRANEXAMIC ACID IV ONE (11:00)
[2016-08-02] MEDS ORDERED: BUPIVACAINE LIPOSOME/PF 266 MG/20 ML VIAL INFIL ONE (11:00)
[2016-08-02] MEDS ORDERED: LACTATED RINGER'S 1,000 ML IV SCH (11:00)
[2016-08-02] MEDS ORDERED: TRANEXAMIC ACID 740 MG in SOD CHLORIDE 0.9% 100 ML IVPB ONE ×3 (11:00→23:30)
[2016-08-02] MEDS ORDERED: BACITRACIN 50000 UNITS INJ ONE (11:19)
[2016-08-02] MEDS ORDERED: MTF1000T PO (12:32)
[2016-08-02] MEDS ORDERED: ASPI-664 PO (12:33)
[2016-08-02] MEDS ORDERED: ASPI81TA3 PO (12:37)
[2016-08-02] MEDS ORDERED: LOSA50TA6 PO (12:37)
--- NOTE | 2016-08-02 13:25 | HPN ---
Date/Time of Note Date/Time of Note DATE: 08/02/16 TIME: 13:24 Interval H&P Admission Note Pt. seen H&P reviewed: No system changes No changes from H&P on 07/21/16 by PRECIOUS Del Rosario MD Aug 02, 2016 13:25
[2016-08-02] MEDS ORDERED: VANCOMYCIN 1 GM INJ ONE (13:37)
[2016-08-02] MEDS ORDERED: POLYMYXIN B 500000 UNIT INJ ONE (13:37)
[2016-08-02] MEDS ORDERED: FENTAnyl 50 MCG/ML VIAL ONE (13:52)
[2016-08-02] MEDS ORDERED: SUCCINYLCHOLINE CHLORIDE 100 MG/5 ML SYG IV ONE (13:52)
[2016-08-02] MEDS ORDERED: LIDOCAINE 2% (SDV) 5 ML INJ ONE (13:52)
[2016-08-02] MEDS ORDERED: ROCURONIUM 50 MG INJ ONE (13:52)
[2016-08-02] MEDS ORDERED: PROPOFOL 100 ML ONE (13:52)
[2016-08-02] MEDS ORDERED: EXPAREL NOTE (BUPIVICAINE LIPOSOMAL) XX SCH (14:00)
[2016-08-02] MEDS ORDERED: NEOSTIGMINE 3 MG/3 ML SYRINGE ONE (14:41)
[2016-08-02] MEDS ORDERED: GLYCOPYRROLATE 0.4 MG INJ ONE (14:41)
[2016-08-02] MEDS ORDERED: EPHEDrine SULFATE 50 MG/5 ML SYG ONE ×2 (14:51→16:38)
[2016-08-02] MEDS ORDERED: ONDANSETRON 4 MG INJ ONE (14:58)
[2016-08-02] MEDS ORDERED: DEXAMETHASONE 4 MG/ML 1 ML INJ ONE (14:58)
[2016-08-02] MEDS ORDERED: FAMOTIDINE 20 MG INJ ONE (14:58)
--- NOTE | 2016-08-02 16:47 | OPR ---
Date/Time of Note Date/Time of Note DATE: 08/02/16 TIME: 16:45 Operative Report Free Text/Dictation Dictation # [id number] Procedure Date: Aug 02, 2016 Preoperative Diagnosis Right Knee OA Postoperative Diagnosis Same Operation Performed Right TKA Surgeon: PRECIOUS MURILLO MD staff assistant: BLAIR MURILLO PA-C Anesthesia: general, spinal Anesthesiologist: TEA FLORES MD Tourniquet Time: 73 minutes Estimated Blood Loss: 50 - 100 ml's Specimens Bone and soft tissue Tubes/Drains Hemovac x 1 Complications: None Pt Condition Post Procedure: stable Disposition: PACU PRECIOUS MURILLO MD Aug 02, 2016 16:46
[2016-08-02] MEDS ORDERED: FENTAnyl 50 MCG/ML VIAL IV PRN (17:00)
[2016-08-02] MEDS ORDERED: LABETALOL HCL 20MG INJ IV PRN (17:00)
[2016-08-02] MEDS ORDERED: DIPHENHYDRAMINE 50 MG INJ IV PRN (17:00)
[2016-08-02] MEDS ORDERED: HYDROmorphONE (0.2 MG/ML) 10ML SYG IV PRN (17:00)
[2016-08-02] MEDS ORDERED: ONDANSETRON 4 MG INJ IV PRN ×2 (17:00→17:30)
[2016-08-02] MEDS ORDERED: hydrALAzine 20 MG INJ IV PRN (17:00)
[2016-08-02] MEDS: LACTATED RINGER'S 1,000 ML IV SCH ×2 (17:06→23:11)
--- NOTE | 2016-08-02 17:26 | PN ---
Date/Time of Note Date/Time of Note DATE: 08/02/16 TIME: 17:16 Assessment/Plan Assessment/Plan Assessment/Plan Stable in PACU, s/p right TKA -continue antibiotics -pain meds as needed -ASA/SCDs for DVT prophylaxis -OOB with PT -monitor drain -check AM labs -d/c interiano in AM XR of the right knee is pending at this time Subjective 24 Hr Interval Summary Stable in PACU. Drowsy from anesthesia. Denies pain. Moving all extremities. Exam/Review of Systems Vital Signs Vitals Vital Signs Date Time Temp Pulse Resp B/P Pulse Ox O2 Delivery O2 Flow Rate FiO2 08/02/16 17:03 98.8 08/02/16 11:52 63 20 173/77 0 Room Air Exam Free Text/Dictation Hemovac: minimal Dressing dry Incision clean, dry, and intact without redness or drainage Thigh soft 5/5 Quadriceps, Tibialis Anterior, EHL, Gastroc, Soleus, Peroneals Normal sensation Palpable DT/PT, CR <2 sec No distal edema BLAIR MURILLO PA-C Aug 02, 2016 17:26
[2016-08-02 17:27] LABS: HEMATOCRIT 34.3 % (37.0-47.0); HEMOGLOBIN 11.1 g/dl (12.0-16.0)
[2016-08-02] MEDS ORDERED: GLUCAGON 1 MG INJ IM PRN (17:30)
[2016-08-02] MEDS ORDERED: MAGNESIUM HYDROXIDE 30ML CUP PO PRN (17:30)
[2016-08-02] MEDS ORDERED: oxyCODONE 5 MG TAB PO PRN (17:30)
[2016-08-02] MEDS ORDERED: NA PHOSPHATE/BIPHOS 133 ML ENEMA PR PRN (17:30)
[2016-08-02] MEDS ORDERED: HYDROmorphONE 1 MG/ML SYG IV PRN (17:30)
[2016-08-02] MEDS ORDERED: ASPIRIN (EC) 325 MG TAB PO ONE (17:30)
[2016-08-02] MEDS ORDERED: GLUCOSE GEL 15 GRAM TUBE PO PRN ×2 (17:30)
[2016-08-02] MEDS ORDERED: BISACODYL 10 MG SUPP PR PRN (17:30)
[2016-08-02] MEDS ORDERED: NACL 0.9% 3 ML SYG IV SCH (17:30)
[2016-08-02] MEDS ORDERED: DIPHENHYDRAMINE 25 MG CAP PO PRN (17:30)
[2016-08-02] MEDS ORDERED: GLUCOSE GEL 15 GRAM TUBE BUCCAL PRN (17:30)
[2016-08-02] MEDS ORDERED: DEXTROSE 50% 50 ML SYRINGE IV PRN ×2 (17:30)
--- NOTE | 2016-08-02 17:32 | PDOCDIS ---
Discharge Instructions DIAGNOSIS Discharge Diagnosis: s/p right TKA CONDITION Patient Condition: Good HOME CARE INSTRUCTIONS: Diet Instructions: Regular ACTIVITY: Activity Restrictions: Slowly Increase Activity Rest between Activity Avoid heavy lifting Do not operate Machinery Do not operate Power Tool Avoid Heavy Housework Keep Limb Elevated Bathing Restrictions: Shower FOLLOW UP/APPOINTMENTS Appointments follow up in the office on 08/13/16 OTHER ORDERS: Other Orders: S/P TKA Physical Therapy: Three times per week at home x 2 weeks Daily in Rehab/SNF WB STATUS: WBAT 1. Strengthening exercises for both upper and un-operated lower extremities. 2. Gait training with front wheeled walker 3. Active range of motion exercises to operative knee. 4. When not working on knee range of motion exercises, distal towel roll under operative ankle/distal calf to promote full extension. 5. DO NOT PUT ANYTHING BEHIND OPERATIVE KNEE!!! 6. Quadriceps and hamstring strengthening. 7. May switch to cane in contra lateral hand 6 weeks after surgery. 8. Physical Therapy can open case if nursing is not available. 9. Use Ice Machine as instructed from date of surgery while at rest 3X/day. 10. Patient requires mobile SCDs to reduce risk of developing DVT following TKA. Patient will use the mobile SCDs for 30 days postoperatively. Bathing assistance by home health aide twice weekly if Medicare patient. Occupational Therapy: Evaluation for assistive devices and ADL training. Wound Care: Keep incision dry & covered with Tegaderm until first visit with Dr. Bolanos Anticoagulation Orders: Enteric Coated Aspirin 325 mg po bid x 6 weeks from date of surgery Follow-up:Call for an appointment with Dr. Bolanos in 1 week after discharged from hospital at DME Orders: KRYSTLE, 3-in-1 Commode, Polar ice machine, Mobile SCDs BLAIR MURILLO PA-C Aug 02, 2016 17:32
[2016-08-02] MEDS ORDERED: PANT40TA4 PO (17:34)
[2016-08-02] MEDS ORDERED: ASPI325T32 PO (17:34)
[2016-08-02] MEDS ORDERED: HYDR-905 PO (17:34)
[2016-08-02] MEDS ORDERED: GABA300C PO (17:34)
[2016-08-02] MEDS ORDERED: TRAM50TA2 PO (17:34)
--- NOTE | 2016-08-02 17:43 | OPR ---
DATE OF OPERATION: 08/02/2016 PREOPERATIVE DIAGNOSIS: Right knee osteoarthritis. POSTOPERATIVE DIAGNOSIS: Right knee osteoarthritis. OPERATION PERFORMED: Right total knee arthroplasty. SURGEON: Precious Bolanos MD. MOTORMAN/WOMAN: CHEMO Hassan. COMPONENTS USED: DePuy Attune size 4 narrow femoral component, size 3 tibial baseplate, 5 mm polyethylene insert, 32 patellar button. ANESTHESIA: Spinal plus general endotracheal intubation plus periarticular injection. ANESTHESIOLOGIST: Dr. Dominique Alex. TOURNIQUET TIME: 73 minutes. ESTIMATED BLOOD LOSS: 50 mL. INTRAVENOUS FLUIDS: Two liters of crystalloid. SPECIMENS: Bone and soft tissue. DRAINS: Hemovac x1. COMPLICATIONS: None. DISPOSITION: The patient tolerated the procedure well and was taken to the recovery room in stable condition. INDICATIONS: The patient is a 66-year-old woman who has had progressive and worsening pain in the right knee with radiographic evidence of severe osteoarthritis. She has failed nonsurgical means of treatment to control her pain including activity modifications, pain medications, intra-articular injections and ambulatory assist devices. Despite these measures, she has had worsening pain. I felt she would benefit from a total knee arthroplasty. The risks, benefits, and alternatives of the procedure were explained in detail to the patient. I explained the risks of the surgery to include but not be limited to, bleeding and possible need for blood transfusion; infection; pain; stiffness; neurovascular injury with possible numbness, weakness, and/or paralysis anywhere from the knee down to the toes; fracture; instability; dislocation; wear and/or loosening of the prosthesis and possible need for future revision; blood clots; pulmonary embolism; and anesthetic complications such as heart attack, stroke, GI bleed, pneumonia, and/or . Ample time was allowed for the patient to ask questions, all of which were addressed and answered. The patient understood the risks involved and wished to proceed. Informed consent was signed prior to the procedure. PROCEDURE: The patient's right knee was initialed with a marking pen in the preoperative area to identify the correct operative site. The patient was brought to the operating room and transferred from the [facility] to the operating table where a spinal anesthetic was administered. The patient was then anesthetized and intubated. A Sanchez catheter was placed. A timeout was performed to confirm that the right leg was the correct operative site. The patient was given 2 g of Ancef within one hour prior to the procedure. A tourniquet was placed on the operative proximal thigh. The operative knee and lower extremity were prepped and draped in the usual sterile fashion. The operative lower extremity was elevated and exsanguinated with an Esmarch tourniquet. The proximal thigh tourniquet was inflated to 300 mmHg. The knee was flexed. A midline incision was made and carried down through the subcutaneous tissue and fat with sharp dissection. Limited medial and lateral flaps were raised. A median parapatellar arthrotomy approach was performed. Synovial fluid was normal in color and consistency. The patella was everted and the knee flexed. There were severe tricompartmental osteoarthritic changes noted. A medial release was performed at the joint line to the midcoronal plane. The ACL and PCL and remnants of the menisci were excised. The stepped drill was used to open up the femoral canal which was irrigated and sucked dry. The intramedullary guide klaus was passed up the femur, and the distal cutting block was pinned into place for a 6-degree valgus cut, taking 10 mm of bone off distally. The oscillating saw was used to make the cut. The tibia was subluxed anteriorly. The tibial cutoff jig was placed over the center of the talus distally and over the junction of the medial and middle third of the tibial tubercle proximally. The guide was pinned into place and the oscillating saw was used to make the cut. The tibia was sized. The extension gap was checked and accommodated a 5 mm spacer block with the knee in full extension. There was no varus or valgus instability. At this point, the femur was sized with the posterior referencing guide. Two holes were drilled in 3 degrees of external rotation. The two holes were in line with the transepicondylar axis, perpendicular to [place]'s line, and in line with the tibial cutoff jig brought up with the knee flexed 90 degrees and tensed with 2 lamina spreaders, suggesting the femoral rotation was correct. The four-in-one cutting block was pinned into place. The anterior and posterior cuts and chamfer cuts were made with the oscillating saw. The flexion gap was checked and accommodated the 5 mm spacer block at 90 degrees. There was no varus or valgus instability, suggesting the flexion and extension gaps were now equal. The central box was cut out on the femur. The tibia was drilled and punched in proper rotation. Trial components were placed into position with a trial insert. The patella was cut from 21 mm down to 13 mm and sized. Three holes were drilled and the trial button placed in position. With all the trials now in place, the knee was taken through range of motion and came to full extension as evidenced by the fact that with the foot on my abdomen and axial loading, there was no tendency for the knee to flex. The knee was able to be flexed to 125 degrees with good patellar tracking with no lateral tilt or subluxation. At this point, I was satisfied with the overall range of motion, stability, and patellar tracking. The trials were removed. The real components were opened. Two bags of cement were mixed, one with and one without premixed antibiotic. The knee was irrigated with antibiotic saline and sucked dry. Once the cement was in a doughy stage, the real components were cemented into place. The knee was held in full extension, and the patellar component was held with a patellar clamp. All excess cement was removed with curettes. As the cement was hardening, the synovial/capsular layer was infiltrated with a mixture of 150 mg of 0.5% Bupivacaine, 8 mg of Duramorph, 300 mcg of epinephrine, 30 mg of Toradol, 100 mcg of clonidine, 750 mg of cefuroxime and 86 mL of normal saline, followed by an injection of 266 mg of liposomal Bupivacaine. A Hemovac drain was placed in the deep portion of the wound and brought out the anterolateral thigh. Once the cement was completely hardened, the trial liner was removed, and the real insert was opened. The tourniquet was let down, and there was good hemostasis. The knee was then irrigated with a mixture of betadine/saline and then antibiotic saline with pulsatile lavage. The real insert was impacted into the tibia and reduced onto to the femur. The arthrotomy was closed with a few interrupted #1 Ethibond in a figure-of- eight fashion, and then closed in a watertight fashion with a running #2 Stratafix suture. Knee flexion was checked against gravity and came to 125 degrees. The subcutaneous layer was irrigated and closed with 2-0 Statafix, and then 3-0 Vicryl and then haydee on the skin. The wound was covered with an occlusive dressing, and secured with cast padding and a bias dressing. The drain was secured with 3-0 nylon. The sponge and needle counts were correct at the end of the case. The patient was then awakened, extubated, and taken to the recovery room in stable condition. Dictated By: PRECIOUS PITTS/LB Conf#: [id number] DID#: [id number] MTDD
[2016-08-02 17:54] LABS: CALCIUM 9.4 mg/dl (8.4-10.2); CREATININE 0.73 mg/dl (0.44-1.00); POTASSIUM 4.1 mmol/L (3.5-5.1)
[2016-08-02] MEDS ORDERED: CEFAZOLIN 1 GM/50 ML (PMX) 0 ML IVPB ONE (18:10)
[2016-08-02] MEDS: PANTOPRAZOLE (EC) 40 MG TAB PO SCH (18:15)
[2016-08-02] MEDS: traMADol 50 MG TAB PO SCH ×2 (18:15→18:16)
[2016-08-02] MEDS: CEFAZOLIN 2 GM/50 ML (PMX) 50 ML IVPB SCH (18:25)
--- NOTE | 2016-08-02 19:58 | RADRPT ---
PROCEDURE: Right knee x-ray CLINICAL INDICATION: Postop imaging. TECHNIQUE: AP, lateral and oblique views of the knee were obtained. COMPARISON: Bilateral knees 02/13/2017. FINDINGS: A drainage tube in skin haydee are noted projecting across the right knee from recent surgery. The femoral and tibial as well as patellar components of the left knee arthroplasty appear anatomically aligned. The remaining bony elements are normal. There is a stable chronic periostitis along the proximal diaphysis of the right fibula. IMPRESSION: 1. Status post total right knee arthroplasty with postsurgical changes and a drainage tube noted in the area of the suprapatellar bursa. RPTAT:AAJJ Physician Joanne Date Time Electronically viewed and signed by Phillip Harrington Physician on 08/02/2016 19:58 AXEL/
[2016-08-02] MEDS: DOCUSATE SODIUM 100 MG CAP PO SCH (20:51)
[2016-08-02] MEDS: metFORMIN 500 MG TAB PO SCH (20:51)
[2016-08-02] MEDS: ATORVASTATIN 10 MG TAB PO SCH (20:51)
[2016-08-02] MEDS: METOPROLOL 25 MG TAB PO SCH (20:52)
[2016-08-02] MEDS: PREGABALIN 50 MG CAP PO SCH (20:53)
[2016-08-02] MEDS ORDERED: glipiZIDE 5 MG TAB PO SCH (21:00)
--- NOTE | 2016-08-02 21:03 | CONS ---
DATE OF ADMISSION: 08/02/2016 DATE OF CONSULTATION: 08/02/2016 IDENTIFICATION: A 66-year-old female who came in for elective right total knee replacement. HISTORY OF PRESENT ILLNESS: A 66-year-old female with past medical history of high cholesterol, coronary artery disease with cardiac stent placement in the past, diabetes type 2, hypertension and pacemaker placement in the past, who was brought in for elective right total knee replacement secondary to osteoarthritis. Presently the patient is having some nausea symptoms. She just came out of surgery earlier today. Denies any significant chest pain. No upper or lower GI bleeding, no changes in her bowel movements. The patient had a history of a left total knee replacement performed back in 04/2016 as well. PAST MEDICAL HISTORY: As stated above. ALLERGIES: NO KNOWN DRUG ALLERGIES. HOME MEDICINES: Include: 1. Atorvastatin 10 mg at bedtime. 2. Losartan 50 mg daily. 3. Lopressor 25 mg b.i.d. 4. Aspirin 81 mg daily. 5. Calcium carbonate 600 mg daily. 6. Glipizide 5 mg b.i.d. 7. Metformin 1000 mg b.i.d. PAST SURGICAL HISTORY: Left total knee replacement in 04/2016. SOCIAL HISTORY: Negative for smoking, drinking, or IV drug abuse. FAMILY HISTORY: Noncontributory today. PHYSICAL EXAMINATION: VITAL SIGNS: Afebrile, pulse 76 to 92, respirations 11 to 22, blood pressure 128 to 165 systolic over 65 to 80 diastolic, satting at 100% on room air. GENERAL: The patient is sitting up in bed, slightly nauseous, but otherwise alert. Family members at the bedside. HEENT: Pupils equal, round, react to light. Extraocular muscles intact. NECK: Supple, no thyromegaly. LUNGS: Clear to auscultation bilaterally. CARDIOVASCULAR: S1, S2 heard. No rubs or gallops. ABDOMEN: Soft, nontender, nondistended. Normal bowel sounds. No rebound or guarding. MUSCULOSKELETAL: She has decreased range of motion of right lower extremity. There is a drain in place. NEUROLOGIC: No focal deficits. LABORATORIES: Hemoglobin 11.1, hematocrit 34.3. Basic metabolic panel is normal. ASSESSMENT AND PLAN: A 66-year-old female who earlier today underwent right total knee replacement secondary to osteoarthritis with past medical history of hypertension, diabetes, high cholesterol, pacemaker and coronary artery disease. 1. Status post right total knee replacement. Continue postoperative care per orthopedic surgery team recommendations including physical therapy, pain control medications and labs. 2. Type 2 diabetes. Continue to monitor for now. Consider adding sliding scale insulin and check an A1c. 3. Hypertension. Blood pressure stable. Continue current medications ordered by primary team. 4. History of coronary artery disease. Again, see #3. Continue current cardiac medications and statin medicines as well. 5. Deep venous thrombosis prophylaxis on high-dose aspirin. 6. Gastrointestinal prophylaxis on Protonix. We will continue to follow along. Dictated By: SILVIA HICKS/LB Conf#: [id number] DID#: [id number]
[2016-08-03] VITALS: BP 106/53; RESP 18
[2016-08-03] MEDS: CEFAZOLIN 2 GM/50 ML (PMX) 50 ML IVPB SCH ×2 (02:11→09:24)
[2016-08-03] MEDS: traMADol 50 MG TAB PO SCH ×4 (05:18→17:43)
[2016-08-03] MEDS: PANTOPRAZOLE (EC) 40 MG TAB PO SCH ×2 (05:18→17:43)
[2016-08-03 05:36] LABS: HEMATOCRIT 34.8 % (37.0-47.0)
[2016-08-03 05:39] VITALS: BP 115/72; PULSE 85; RESP 18
[2016-08-03 06:18] LABS: POTASSIUM 5.4 mmol/L (3.5-5.1)
[2016-08-03 06:20] LABS: CREATININE 0.81 mg/dl (0.44-1.00)
[2016-08-03 06:21] LABS: CALCIUM 9.5 mg/dl (8.4-10.2)
[2016-08-03 08:00] VITALS: BP 116/53; RESP 20
--- NOTE | 2016-08-03 08:52 | PN ---
Date/Time of Note Date/Time of Note DATE: 08/03/16 TIME: 08:50 Assessment/Plan Lines/Catheters IV Catheter Type (from Nrsg): Peripheral IV Sanchez in Place (from Nrsg): Yes Assessment/Plan Assessment/Plan Stable POD #1, s/p right TKA -d/c abx -pain meds as needed -ASA/SCDs -OOB with PT -check AM labs -drain removed -d/c planning. Will plan to go home upon discharge Subjective 24 Hr Interval Summary No acute overnight events. Denies any pain. Did not start PT. VSS, afebrile. Will plan to go home upon discharge. Exam/Review of Systems Vital Signs Vitals Vital Signs Date Time Temp Pulse Resp B/P Pulse Ox O2 Delivery O2 Flow Rate FiO2 08/03/16 08:00 97.4 69 20 116/53 99 08/03/16 05:39 Nasal Cannula 2.0 Intake and Output 08/02/16 08/02/16 08/03/16 15:00 23:00 07:00 Intake Total 2200 ml 1775 ml Output Total 320 ml 890 ml Balance 2200 ml -320 ml 885 ml Exam Free Text/Dictation Hemovac: 60cc Dressing dry Incision clean, dry, and intact without redness or drainage Thigh soft 5/5 Quadriceps, Tibialis Anterior, EHL, Gastroc, Soleus, Peroneals Normal sensation Palpable DT/PT, CR <2 sec No distal edema Results Result Diagram: 08/03/1643908/03/16439 BLAIR MURILLO PA-C Aug 03, 2016 08:51
[2016-08-03 09:03] LABS: ADD UMIC NO; URINE BILIRUBIN (Dip) NEGATIVE (NEGATIVE); URINE BLOOD (Dip) NEGATIVE (NEGATIVE); URINE COLOR LT. YELLOW (YELLOW); URINE KETONES (Dip) TRACE (NEGATIVE); URINE LEUKOCYTE ESTERASE (Dip) NEGATIVE (NEGATIVE); URINE NITRITE (Dip) NEGATIVE (NEGATIVE); URINE TOTAL PROTEIN (Dip) NEGATIVE (NEGATIVE); URINE UROBILINOGEN (Dip) 0.2 E.U./dL (0.1-1.0)
[2016-08-03] MEDS: metFORMIN 500 MG TAB PO SCH ×2 (09:21→20:37)
[2016-08-03] MEDS: CELECOXIB 200 MG CAP PO SCH (09:22)
[2016-08-03] MEDS: ASPIRIN (EC) 325 MG TAB PO SCH ×2 (09:22→20:37)
[2016-08-03] MEDS: DOCUSATE SODIUM 100 MG CAP PO SCH ×2 (09:22→20:38)
[2016-08-03] MEDS: LOSARTAN 50 MG TAB PO SCH (09:23)
[2016-08-03] MEDS: PREGABALIN 50 MG CAP PO SCH ×2 (09:23→20:43)
[2016-08-03] MEDS: METOPROLOL 25 MG TAB PO SCH ×2 (09:23→20:39)
[2016-08-03] MEDS: LACTATED RINGER'S 1,000 ML IV SCH ×2 (09:24→17:06)
[2016-08-03] MEDS: INSULIN ASPART [NOVOLOG] 3 ML PEN SC SCH ×4 (09:37→21:00)
[2016-08-03] MEDS: oxyCODONE 5 MG TAB PO PRN (09:40)
--- NOTE | 2016-08-03 09:59 | CONS ---
Date/Time of Note Date/Time of Note DATE: 08/03/16 TIME: 09:56 Consult Date/Type/Reason Admit Date/Time Aug 02, 2016 at 10:03 Initial Consult Date Subjective Worked with PT. Objective Vital Signs Date Time Temp Pulse Resp B/P Pulse Ox O2 Delivery O2 Flow Rate FiO2 08/03/16 08:00 97.4 69 20 116/53 99 08/03/16 05:39 Nasal Cannula 2.0 Intake and Output 08/02/16 08/02/16 08/03/16 15:00 23:00 07:00 Intake Total 2200 ml 1775 ml Output Total 320 ml 890 ml Balance 2200 ml -320 ml 885 ml Exam GENERAL: The patient is sitting up in bed, alert. HEENT: Pupils equal, round, react to light. Extraocular muscles intact. NECK: Supple, no thyromegaly. LUNGS: Clear to auscultation bilaterally. CARDIOVASCULAR: S1, S2 heard. No rubs or gallops. ABDOMEN: Soft, nontender, nondistended. Normal bowel sounds. No rebound or guarding. MUSCULOSKELETAL: some decreased range of motion of right lower extremity. NEUROLOGIC: No focal deficits. Results/Medications Result Diagram: 08/03/16 0440 08/03/16 0440 Results 24 hrs Laboratory Tests Test 08/02/16 11:30 08/02/16 17:03 08/02/16 17:22 08/03/16 04:00 Bedside Glucose 112 115 Hemoglobin 11.1 L Hematocrit 34.3 L Sodium Level 136 Potassium Level 4.1 Chloride Level 103 Carbon Dioxide Level 24 Anion Gap 13 Blood Urea Nitrogen 17 Creatinine 0.73 Glucose Level 126 Calcium Level 9.4 Urine Color LT. YELLOW Urine Clarity CLEAR Urine pH 5.5 Urine Specific [place] >=1.030 H Urine Ketones TRACE H Urine Nitrite NEGATIVE Urine Bilirubin NEGATIVE Urine Urobilinogen 0.2 E.U./dL Urine Leukocyte Esterase NEGATIVE Urine Hemoglobin NEGATIVE Urine Glucose 0.5% H Urine Total Protein NEGATIVE Test 08/03/16 04:40 08/03/16 07:52 Hemoglobin 11.0 L Hematocrit 34.8 L Sodium Level 136 Potassium Level 5.4 H Chloride Level 101 Carbon Dioxide Level 24 Anion Gap 16 Blood Urea Nitrogen 23 H Creatinine 0.81 Glucose Level 217 Hemoglobin A1c 6.4 H Calcium Level 9.5 Bedside Glucose 191 Medications Current Medications Atorvastatin Calcium (Lipitor) 10 mg QHS PO Last administered on 08/02/16 20: 51; Admin Dose 10 MG; Start 08/02/16 at 21:00 Losartan Potassium (Cozaar) 50 mg DAILY PO Last administered on 08/03/16 09:23 ; Admin Dose 50 MG; Start 08/03/16 at 09:00 Metformin HCl (Glucophage) 1,000 mg BID PO Last administered on 08/03/16 09:21 ; Admin Dose 1,000 MG; Start 08/02/16 at 21:00 Metoprolol Tartrate 25 mg 25 mg BID PO Last administered on 08/03/16 09:23; Admin Dose 25 MG; Start 08/02/16 at 21:00 Lactated Ringer's (Lr) 1,000 ml @ 125 mls/hr Q8H IV Last administered on 09:24; Admin Dose 125 MLS/HR; Start 08/02/16 at 17:06 Celecoxib (Celebrex) 200 mg DAILY PO Last administered on 08/03/16 09:22; Admin Dose 200 MG; Start 08/03/16 at 09:00 Tramadol HCl (Ultram) 50 mg Q6 PO Last administered on 08/03/16 05:18; Admin Dose 50 MG; Start 08/02/16 at 12:00; Stop 08/05/16 at 11:59 Oxycodone HCl (Roxicodone) 5 mg Q4H PRN PO PAIN LEVEL 1-3; Start 08/02/16 at 17 :30 Oxycodone HCl (Roxicodone) 10 mg Q4H PRN PO PAIN LEVEL 4-7 Last administered on 08/03/16 09:40; Admin Dose 10 MG; Start 08/02/16 at 17:30 Hydromorphone HCl 1 mg 1 mg Q3H PRN IV PAIN LEVEL 8-10; Start 08/02/16 at 17:30 Cefazolin Sodium/ Dextrose (Ancef 2 Gm/50 ml (Pmx)) 50 ml @ 100 mls/hr Q8H IVPB Last administered on 08/03/16 09:24; Admin Dose 100 MLS/HR; Start at 17:30; Stop 08/03/16 at 09:59 Ondansetron HCl (Zofran Inj) 4 mg Q6H PRN IV NAUSEA AND/OR VOMITING Last administered on 08/02/16 21:05; Admin Dose 4 MG; Start 08/02/16 at 17:30 Bisacodyl (Dulcolax Supp) 10 mg Q12H PRN [place] CONSTIPATION; Start 08/02/16 at 17: 30 Magnesium Hydroxide (Milk Of Mag) 30 ml BID PRN PO CONSTIPATION; Start at 17:30 Sodium Biphosphate/ Sodium Phosphate (Fleet Enema) 133 ml DAILY PRN [place] CONSTIPATION; Start 08/02/16 at 17:30 Docusate Sodium (Colace) 100 mg BID PO Last administered on 08/03/16 09:22; Admin Dose 100 MG; Start 08/02/16 at 21:00 Diphenhydramine HCl (Benadryl) 25 mg Q6H PRN PO PRURITUS; Start 08/02/16 at 17: 30 Aspirin (Ecotrin) 325 mg BID PO Last administered on 08/03/16 09:22; Admin Dose 325 MG; Start 08/03/16 at 09:00 Pantoprazole (Protonix Tab) 40 mg BID@06,18 PO Last administered on 08/03/16 05:18; Admin Dose 40 MG; Start 08/02/16 at 18:00 Pregabalin (Lyrica) 50 mg BID PO Last administered on 08/03/16 09:23; Admin Dose 50 MG; Start 08/02/16 at 21:00 Miscellaneous Information 1 ea NOTE XX ; Start 08/02/16 at 17:30 Glucose (Glutose) 15 gm Q15M PRN PO DECREASED GLUCOSE; Start 08/02/16 at 17:30 Glucose (Glutose) 22.5 gm Q15M PRN PO DECREASED GLUCOSE; Start 08/02/16 at 17: 30 Dextrose (D50w Syringe) 25 ml Q15M PRN IV DECREASED GLUCOSE; Start 08/02/16 at 17:30 Dextrose (D50w Syringe) 50 ml Q15M PRN IV DECREASED GLUCOSE; Start 08/02/16 at 17:30 Glucagon (Glucagen) 1 mg Q15M PRN IM DECREASED GLUCOSE; Start 08/02/16 at 17:30 Glucose (Glutose) 15 gm Q15M PRN BUCCAL DECREASED GLUCOSE; Start 4/20/17 at 17 :30 Diagnostic Test (Pha) (Accu-Chek) 1 ea 02 XX ; Start 08/04/16 at 02:00 Assessment/Plan Chief Complaint/Hosp Course ASSESSMENT AND PLAN: A 66-year-old female who earlier today underwent right total knee replacement secondary to osteoarthritis POD #1, with past medical history of hypertension, diabetes, high cholesterol, pacemaker and coronary artery disease. 1. Status post right total knee replacement - POD # 1. Continue postoperative care per orthopedic surgery team recommendations including physical therapy, pain control medications and labs. 2. Type 2 diabetes - FS stable, A1c = 6.4. Continue to monitor for now, continue insulin sliding scale 3. Hypertension. Blood pressure stable. Continue current medications ordered by primary team. 4. History of coronary artery disease. Again, see #3. Continue current cardiac medications and statin medicines as well. 5. hyperkalemia - no cp - monitor, if worsens, consider kayexlate and EKG. 6. Deep venous thrombosis prophylaxis on high-dose aspirin. 7. Gastrointestinal prophylaxis on Protonix. We will continue to follow along. Problems: SILVIA BAILEY Aug 03, 2016 09:59
[2016-08-03 19:25] VITALS: RESP 18
[2016-08-03] MEDS: ATORVASTATIN 10 MG TAB PO SCH (20:37)
[2016-08-04] MEDS: LACTATED RINGER'S 1,000 ML IV SCH ×3 (01:06→17:06)
[2016-08-04] MEDS: ACCU-CHEK XX SCH ×2 (02:00→21:07)
[2016-08-04] MEDS: PANTOPRAZOLE (EC) 40 MG TAB PO SCH ×2 (05:15→17:33)
[2016-08-04] MEDS: traMADol 50 MG TAB PO SCH ×5 (05:15→23:49)
[2016-08-04 05:46] LABS: HEMATOCRIT 30.5 % (37.0-47.0); HEMOGLOBIN 9.5 g/dl (12.0-16.0)
[2016-08-04 06:13] LABS: POTASSIUM 5.2 mmol/L (3.5-5.1)
[2016-08-04 06:16] LABS: CREATININE 1.03 mg/dl (0.44-1.00)
[2016-08-04 06:17] LABS: CALCIUM 8.9 mg/dl (8.4-10.2)
[2016-08-04 07:00] VITALS: BP 121/59; RESP 20
[2016-08-04] MEDS: INSULIN ASPART [NOVOLOG] 3 ML PEN SC SCH ×4 (07:50→21:00)
[2016-08-04] MEDS: DOCUSATE SODIUM 100 MG CAP PO SCH ×2 (08:59→20:35)
[2016-08-04] MEDS: PREGABALIN 50 MG CAP PO SCH ×2 (08:59→20:35)
[2016-08-04] MEDS: CELECOXIB 200 MG CAP PO SCH (09:00)
[2016-08-04] MEDS: METOPROLOL 25 MG TAB PO SCH ×2 (09:00→20:36)
[2016-08-04] MEDS: metFORMIN 500 MG TAB PO SCH ×2 (09:00→17:34)
[2016-08-04] MEDS: ASPIRIN (EC) 325 MG TAB PO SCH ×2 (09:00→20:35)
[2016-08-04] MEDS: LOSARTAN 50 MG TAB PO SCH (09:01)
--- NOTE | 2016-08-04 13:45 | PN ---
Date/Time of Note Date/Time of Note DATE: 08/04/16 TIME: 13:43 Assessment/Plan VTE Prophylaxis VTE Prophylaxis Intervention: other Lines/Catheters [facility] Urinary Cath still in place: Yes Reason Cath still needed: urinary retention Assessment/Plan Problems: (1) Aftercare following right knee joint replacement surgery Status: Acute Comment: She is recuperating nicely. The patient actually quite pleased. Continue care possible discharge from (2) Coronary artery disease Status: Chronic Comment: Stable and quiescent without symptoms Qualifiers: Coronary Disease-Associated Artery/Lesion type: enterprise artery [place] vs. transplanted heart: enterprise heart Associated angina: without angina Qualified Code: I25.10 - Coronary artery disease involving enterprise coronary artery of enterprise heart without angina pectoris (3) Diabetes mellitus type 2 in obese Status: Chronic Comment: Good control Subjective 24 Hr Interval Summary Free Text/Dictation Patient lying in bed resting. Reports that the right leg is done better than the left leg did a few months back Respiratory: no complaints Cardiovascular: no complaints Gastrointestinal: no complaints Genitourinary: no complaints Exam/Review of Systems Vital Signs Vitals Vital Signs Date Time Temp Pulse Resp B/P Pulse Ox O2 Delivery O2 Flow Rate FiO2 08/04/16 07:00 98.3 79 20 121/59 95 08/03/16 08:00 Nasal Cannula 2.0 Intake and Output 08/03/16 08/03/16 08/04/16 15:00 23:00 07:00 Intake Total 675 ml 1440 ml 1700 ml Output Total 200 ml 550 ml Balance 675 ml 1240 ml 1150 ml Exam Constitutional: alert, oriented Neck: non-tender, supple Respiratory: clear to auscultation, normal air movement Cardiovascular: nl pulses, regular rate and rhythm Gastrointestinal: nl liver, spleen, non-tender, soft Results Result Diagram: 08/04/16 0440 08/04/16 0440 Results 24 hrs Laboratory Tests Test 08/03/16 16:55 08/03/16 20:36 08/04/16 04:40 08/04/16 07:59 Bedside Glucose 165 161 100 Hemoglobin 9.5 L Hematocrit 30.5 L Sodium Level 127 L Potassium Level 5.2 H Chloride Level 95 L Carbon Dioxide Level 24 Anion Gap 13 Blood Urea Nitrogen 28 H Creatinine 1.03 H Glucose Level 118 # Calcium Level 8.9 Test 08/04/16 11:36 Bedside Glucose 131 Medications Medications Current Medications Atorvastatin Calcium (Lipitor) 10 mg QHS PO Last administered on 08/03/16 20: 37; Admin Dose 10 MG; Start 08/02/16 at 21:00 Losartan Potassium (Cozaar) 50 mg DAILY PO Last administered on 08/04/16 09:01 ; Admin Dose 50 MG; Start 08/03/16 at 09:00 Metformin HCl (Glucophage) 1,000 mg BID PO Last administered on 08/04/16 09:00 ; Admin Dose 1,000 MG; Start 08/02/16 at 21:00 Metoprolol Tartrate 25 mg 25 mg BID PO Last administered on 08/04/16 09:00; Admin Dose 25 MG; Start 08/02/16 at 21:00 Lactated Ringer's (Lr) 1,000 ml @ 125 mls/hr Q8H IV Last administered on 09:24; Admin Dose 125 MLS/HR; Start 08/02/16 at 17:06 Celecoxib (Celebrex) 200 mg DAILY PO Last administered on 08/04/16 09:00; Admin Dose 200 MG; Start 08/03/16 at 09:00 Tramadol HCl (Ultram) 50 mg Q6 PO Last administered on 08/04/16 12:29; Admin Dose 50 MG; Start 08/02/16 at 12:00; Stop 08/05/16 at 11:59 Oxycodone HCl (Roxicodone) 5 mg Q4H PRN PO PAIN LEVEL 1-3; Start 08/02/16 at 17 :30 Oxycodone HCl (Roxicodone) 10 mg Q4H PRN PO PAIN LEVEL 4-7 Last administered on 08/03/16 09:40; Admin Dose 10 MG; Start 08/02/16 at 17:30 Hydromorphone HCl (Dilaudid) 1 mg Q3H PRN IV PAIN LEVEL 8-10; Start 08/02/16 at 17:30 Ondansetron HCl (Zofran Inj) 4 mg Q6H PRN IV NAUSEA AND/OR VOMITING Last administered on 08/02/16 21:05; Admin Dose 4 MG; Start 08/02/16 at 17:30 Bisacodyl (Dulcolax Supp) 10 mg Q12H PRN [place] CONSTIPATION; Start 08/02/16 at 17: 30 Magnesium Hydroxide (Milk Of Mag) 30 ml BID PRN PO CONSTIPATION; Start at 17:30 Sodium Biphosphate/ Sodium Phosphate (Fleet Enema) 133 ml DAILY PRN [place] CONSTIPATION; Start 08/02/16 at 17:30 Docusate Sodium (Colace) 100 mg BID PO Last administered on 08/04/16 08:59; Admin Dose 100 MG; Start 08/02/16 at 21:00 Diphenhydramine HCl (Benadryl) 25 mg Q6H PRN PO PRURITUS; Start 08/02/16 at 17: 30 Aspirin (Ecotrin) 325 mg BID PO Last administered on 08/04/16 09:00; Admin Dose 325 MG; Start 08/03/16 at 09:00 Pantoprazole (Protonix Tab) 40 mg BID@06,18 PO Last administered on 08/04/16 05:15; Admin Dose 40 MG; Start 08/02/16 at 18:00 Pregabalin (Lyrica) 50 mg BID PO Last administered on 08/04/16 08:59; Admin Dose 50 MG; Start 08/02/16 at 21:00 Miscellaneous Information 1 ea NOTE XX ; Start 08/02/16 at 17:30 Glucose (Glutose) 15 gm Q15M PRN PO DECREASED GLUCOSE; Start 08/02/16 at 17:30 Glucose (Glutose) 22.5 gm Q15M PRN PO DECREASED GLUCOSE; Start 08/02/16 at 17: 30 Dextrose (D50w Syringe) 25 ml Q15M PRN IV DECREASED GLUCOSE; Start 08/02/16 at 17:30 Dextrose (D50w Syringe) 50 ml Q15M PRN IV DECREASED GLUCOSE; Start 08/02/16 at 17:30 Glucagon (Glucagen) 1 mg Q15M PRN IM DECREASED GLUCOSE; Start 08/02/16 at 17:30 Glucose (Glutose) 15 gm Q15M PRN [place] DECREASED GLUCOSE; Start 08/02/16 at 17 :30 Diagnostic Test (Pha) (Accu-Chek) 1 ea 02 XX ; Start 08/04/16 at 02:00 TAPAN GARZON MD Aug 04, 2016 13:45
--- NOTE | 2016-08-04 16:32 | PN ---
DATE: 08/04/2016 The patient is making excellent progress. The dressings are changed. The wound is clean and healin g well. Her son is at her bedside. The patient is able to transfer. She will be discharged home t omorrow. VITAL SIGNS: Temperature is 98.3, hemoglobin is 9.5. Dictated By: TROY AMADO/LB Conf#: [id number] DID#: [id number]
[2016-08-04 19:00] VITALS: BP 164/69; RESP 18
[2016-08-04] MEDS: ATORVASTATIN 10 MG TAB PO SCH (20:36)
[2016-08-05] VITALS: BP 151/68; RESP 18
[2016-08-05] MEDS: LACTATED RINGER'S 1,000 ML IV SCH ×3 (01:06→17:06)
[2016-08-05] MEDS: oxyCODONE 5 MG TAB PO PRN ×2 (02:44→09:02)
[2016-08-05] MEDS: traMADol 50 MG TAB PO SCH (05:24)
[2016-08-05] MEDS: PANTOPRAZOLE (EC) 40 MG TAB PO SCH ×2 (05:24→18:22)
[2016-08-05 05:59] LABS: HEMATOCRIT 31.7 % (37.0-47.0); HEMOGLOBIN 10.1 g/dl (12.0-16.0)
[2016-08-05 07:20] LABS: CALCIUM 8.9 mg/dl (8.4-10.2); CREATININE 0.73 mg/dl (0.44-1.00); POTASSIUM 4.6 mmol/L (3.5-5.1)
[2016-08-05] MEDS: INSULIN ASPART [NOVOLOG] 3 ML PEN SC SCH ×4 (07:50→21:02)
[2016-08-05 08:14] VITALS: BP 156/70; RESP 18
[2016-08-05] MEDS: DOCUSATE SODIUM 100 MG CAP PO SCH ×2 (09:02→20:49)
[2016-08-05] MEDS: ASPIRIN (EC) 325 MG TAB PO SCH ×2 (09:02→20:49)
[2016-08-05] MEDS: CELECOXIB 200 MG CAP PO SCH (09:03)
[2016-08-05] MEDS: PREGABALIN 50 MG CAP PO SCH ×2 (09:03→20:49)
[2016-08-05] MEDS: metFORMIN 500 MG TAB PO SCH ×2 (09:03→20:56)
[2016-08-05] MEDS: METOPROLOL 25 MG TAB PO SCH ×2 (09:04→20:50)
[2016-08-05] MEDS: LOSARTAN 50 MG TAB PO SCH (09:04)
--- NOTE | 2016-08-05 11:41 | PN ---
Date/Time of Note Date/Time of Note DATE: 08/05/16 TIME: 11:39 Assessment/Plan VTE Prophylaxis VTE Prophylaxis Intervention: SCD's, other Lines/Catheters IV Catheter Type (from Nrsg): Saline Lock Urinary Cath still in place: Yes Reason Cath still needed: other (indicate) (Discontinue Sanchez) Assessment/Plan Problems: (1) Aftercare following right knee joint replacement surgery Status: Acute Comment: She is developing acute pain at the operated site. Do cultures will get an ultrasound to make sure she does not have a DVT. Dr. Taylor is been informed and will see the patient shortly (2) Diabetes mellitus type 2 in obese Status: Chronic Comment: Adequate control Subjective 24 Hr Interval Summary Free Text/Dictation Patient reports that she is having pain on the operated side that is new and started this morning. She denies any fevers chills or sweats Constitutional: no complaints Respiratory: no complaints Cardiovascular: no complaints Gastrointestinal: no complaints Exam/Review of Systems Vital Signs Vitals Vital Signs Date Time Temp Pulse Resp B/P Pulse Ox O2 Delivery O2 Flow Rate FiO2 08/05/16 08:14 98.5 74 18 156/70 97 08/03/16 08:00 Nasal Cannula 2.0 Intake and Output 08/04/16 08/04/16 08/05/16 15:00 23:00 07:00 Intake Total 1360 ml 950 ml Output Total 1200 ml 900 ml Balance 160 ml 50 ml Exam Constitutional: alert, oriented Respiratory: clear to auscultation, normal air movement Cardiovascular: nl pulses, regular rate and rhythm Gastrointestinal: nl liver, spleen, non-tender, soft Extremities: other (At surgical site laterally there is an area of redness to the skin that is warmer than the other skin around it) Results Result Diagram: 08/05/16 0425 08/05/16 0425 Results 24 hrs Laboratory Tests Test 08/04/16 17:20 08/04/16 20:33 08/05/16 04:25 08/05/16 08:15 Bedside Glucose 112 103 119 Hemoglobin 10.1 L Hematocrit 31.7 L Sodium Level 130 L Potassium Level 4.6 Chloride Level 102 Carbon Dioxide Level 22 Anion Gap 11 Blood Urea Nitrogen 22 H Creatinine 0.73 Glucose Level 140 Calcium Level 8.9 Test 08/05/16 11:32 Bedside Glucose 178 Medications Medications Current Medications Atorvastatin Calcium (Lipitor) 10 mg QHS PO Last administered on 08/04/16 20: 36; Admin Dose 10 MG; Start 08/02/16 at 21:00 Losartan Potassium (Cozaar) 50 mg DAILY PO Last administered on 08/05/16 09:04 ; Admin Dose 50 MG; Start 08/03/16 at 09:00 Metformin HCl (Glucophage) 1,000 mg BID PO Last administered on 08/05/16 09:03 ; Admin Dose 1,000 MG; Start 08/02/16 at 21:00 Metoprolol Tartrate 25 mg 25 mg BID PO Last administered on 08/05/16 09:04; Admin Dose 25 MG; Start 08/02/16 at 21:00 Lactated Ringer's (Lr) 1,000 ml @ 125 mls/hr Q8H IV Last administered on 09:24; Admin Dose 125 MLS/HR; Start 08/02/16 at 17:06 Celecoxib (Celebrex) 200 mg DAILY PO Last administered on 08/05/16 09:03; Admin Dose 200 MG; Start 08/03/16 at 09:00 Tramadol HCl (Ultram) 50 mg Q6 PO Last administered on 08/05/16 05:24; Admin Dose 50 MG; Start 08/02/16 at 12:00; Stop 08/05/16 at 11:59 Oxycodone HCl (Roxicodone) 5 mg Q4H PRN PO PAIN LEVEL 1-3; Start 08/02/16 at 17 :30 Oxycodone HCl (Roxicodone) 10 mg Q4H PRN PO PAIN LEVEL 4-7 Last administered on 08/05/16 09:02; Admin Dose 10 MG; Start 08/02/16 at 17:30 Hydromorphone HCl (Dilaudid) 1 mg Q3H PRN IV PAIN LEVEL 8-10; Start 08/02/16 at 17:30 Ondansetron HCl (Zofran Inj) 4 mg Q6H PRN IV NAUSEA AND/OR VOMITING Last administered on 08/02/16 21:05; Admin Dose 4 MG; Start 08/02/16 at 17:30 Bisacodyl (Dulcolax Supp) 10 mg Q12H PRN [place] CONSTIPATION; Start 08/02/16 at 17: 30 Magnesium Hydroxide (Milk Of Mag) 30 ml BID PRN PO CONSTIPATION; Start at 17:30 Sodium Biphosphate/ Sodium Phosphate (Fleet Enema) 133 ml DAILY PRN [place] CONST[place]ATION; Start 08/02/16 at 17:30 Docusate Sodium (Colace) 100 mg BID PO Last administered on 08/05/16 09:02; Admin Dose 100 MG; Start 08/02/16 at 21:00 Diphenhydramine HCl (Benadryl) 25 mg Q6H PRN PO PRURITUS; Start 08/02/16 at 17: 30 Aspirin (Ecotrin) 325 mg BID PO Last administered on 08/05/16 09:02; Admin Dose 325 MG; Start 08/03/16 at 09:00 Pantoprazole (Protonix Tab) 40 mg BID@06,18 PO Last administered on 08/05/16 05:24; Admin Dose 40 MG; Start 08/02/16 at 18:00 Pregabalin (Lyrica) 50 mg BID PO Last administered on 08/05/16 09:03; Admin Dose 50 MG; Start 08/02/16 at 21:00 Miscellaneous Information 1 ea NOTE XX ; Start 08/02/16 at 17:30 Glucose (Glutose) 15 gm Q15M PRN PO DECREASED GLUCOSE; Start 08/02/16 at 17:30 Glucose (Glutose) 22.5 gm Q15M PRN PO DECREASED GLUCOSE; Start 08/02/16 at 17: 30 Dextrose (D50w Syringe) 25 ml Q15M PRN IV DECREASED GLUCOSE; Start 08/02/16 at 17:30 Dextrose (D50w Syringe) 50 ml Q15M PRN IV DECREASED GLUCOSE; Start 08/02/16 at 17:30 Glucagon (Glucagen) 1 mg Q15M PRN IM DECREASED GLUCOSE; Start 08/02/16 at 17:30 Glucose (Glutose) 15 gm Q15M PRN BUCCAL DECREASED GLUCOSE; Start 08/02/16 at 17 :30 Diagnostic Test (Pha) (Accu-Chek) 1 ea 02 XX ; Start 08/04/16 at 02:00 TAPAN GARZON MD Aug 05, 2016 11:41
[2016-08-05] MEDS ORDERED: VANCOMYCIN 1 GM (PMX) 250 ML IVPB SCH (16:00)
--- NOTE | 2016-08-05 16:28 | PN ---
DATE: HISTORY OF PRESENT ILLNESS: Patient is seen for Dr. Bolanos. Dr. Taylor on weekend coverage. T he patient seemed to have regressed since yesterday. She has more pain than she did yesterday. She also has more difficulty lifting her leg off the bed (straight leg raising is gravity). Yesterday she had full extension, today she has a 15-degree extensor lag. Her says she was not able t o go to the bathroom last night because they would not bear weight. Dr. Bahena saw her this morning and felt that there was redness of the wound. PHYSICAL EXAMINATION: The wound looks excellent. There is some redness over the lateral aspect of the knee. The wound is completely dry. No signs of drainage. The patient is able to hold her leg in the air, overcoming gravity, but she is not able to fully ext end the knee actively. Flexion is to 105 degrees. Temperature 98.5, hemoglobin is 10.1. MANAGEMENT: 1. The patient being started prophylactically on vancomycin. 2. A long leg knee immobilizer is been applied, and she will wear this until Dr. Bolanos is able to see her and evaluate her situation. Dictated By: TROY AMADO/LB Conf#: [id number] DID#: [id number]
[2016-08-05] MEDS ORDERED: VANCOMYCIN IV PER PHARMACY XX SCH (16:30)
--- NOTE | 2016-08-05 16:33 | RADRPT ---
PROCEDURE: US Lower extremity Venous. CLINICAL INDICATION: Pain and swelling TECHNIQUE: Multiple sonographic images of the right lower extremity deep venous system was obtaine d utilizing grayscale, color-flow, compressive sonography and doppler imaging with augmentation. Th e images were reviewed on a PACS workstation. COMPARISON: None. FINDINGS: There is normal compressibility and flow within the right common femoral, deep femoral, superficial femoral, posterior tibial, peroneal and popliteal veins. IMPRESSION: No sonographic evidence for deep venous thrombosis. RPTAT:AAJJ Physician Nesha Date Time Electronically viewed and signed by Physician Nesha on 08/05/2016 16:32 PRO/
[2016-08-05] MEDS ORDERED: VANCOMYCIN 1.5 GM in SOD CHLORIDE 0.9% 250 ML IVPB SCH (17:30)
[2016-08-05] MEDS: HYDROCODONE/APAP (7.5/325) TAB PO PRN (18:20)
[2016-08-05 20:17] VITALS: BP 130/63; RESP 19
[2016-08-05] MEDS: ATORVASTATIN 10 MG TAB PO SCH (20:49)
[2016-08-06] MEDS: LACTATED RINGER'S 1,000 ML IV SCH ×2 (01:06→09:06)
[2016-08-06] MEDS: HYDROCODONE/APAP (7.5/325) TAB PO PRN ×3 (01:08→09:41)
[2016-08-06] MEDS: ACCU-CHEK XX SCH (01:10)
[2016-08-06] MEDS ORDERED: VANCOMYCIN 750 MG in SOD CHLORIDE 0.9% 150 ML IVPB SCH (05:00)
[2016-08-06] MEDS: PANTOPRAZOLE (EC) 40 MG TAB PO SCH (05:02)
[2016-08-06 05:26] LABS: HEMATOCRIT 30.4 % (37.0-47.0); HEMOGLOBIN 9.7 g/dl (12.0-16.0)
[2016-08-06 05:27] LABS: POTASSIUM 4.1 mmol/L (3.5-5.1)
[2016-08-06 05:30] LABS: CREATININE 0.65 mg/dl (0.44-1.00)
[2016-08-06 05:31] LABS: CALCIUM 8.8 mg/dl (8.4-10.2)
[2016-08-06] MEDS ORDERED: VANCOMYCIN 500MG/NS (PMX) 100 ML IVPB SCH (06:00)
[2016-08-06 07:32] VITALS: BP 130/63; RESP 18
--- NOTE | 2016-08-06 08:50 | PN ---
Date/Time of Note Date/Time of Note DATE: 08/06/16 TIME: 08:47 Assessment/Plan Lines/Catheters IV Catheter Type (from Nrsg): Saline Lock Sanchez in Place (from Nrsg): No Assessment/Plan Assessment/Plan POD #4, s/p right TKA -cont vancomycin that was started over the weekend -pain meds -ASA/SCDs -OOB with PT -dressing changed -d/c planning. May need to go to [facility] upon discharge. Plan for this afternoon or tomorrow if pain better controlled Subjective 24 Hr Interval Summary No acute overnight events. Still having moderate pain at the operative knee. VSS , afebrile. Had digressed with PT and is only walking to the bathroom. May need to go to SNF. Doppler done was negative for DVT. Exam/Review of Systems Vital Signs Vitals Vital Signs Date Time Temp Pulse Resp B/P Pulse Ox O2 Delivery O2 Flow Rate FiO2 08/06/16 07:32 98.0 78 18 130/63 95 08/03/16 08:00 Nasal Cannula 2.0 Intake and Output 08/05/16 08/05/16 08/06/16 15:00 23:00 07:00 Intake Total 1100 ml 600 ml Output Total 650 ml 900 ml Balance 450 ml -300 ml Exam Free Text/Dictation Dressing dry Incision clean, dry, and intact without redness or drainage Thigh soft 5/5 Quadriceps, Tibialis Anterior, EHL, Gastroc, Soleus, Peroneals Normal sensation Palpable DT/PT, CR <2 sec No distal edema Results Result Diagram: 08/06/16 0451 08/06/16 0451 BLAIR MURILLO PA-C Aug 06, 2016 08:50
[2016-08-06] MEDS ORDERED: VANCOMYCIN IV PER PHARMACY XX SCH (09:00)
[2016-08-06] MEDS: DOCUSATE SODIUM 100 MG CAP PO SCH (09:26)
[2016-08-06] MEDS: ASPIRIN (EC) 325 MG TAB PO SCH (09:26)
[2016-08-06] MEDS: CELECOXIB 200 MG CAP PO SCH (09:26)
[2016-08-06] MEDS: METOPROLOL 25 MG TAB PO SCH (09:27)
[2016-08-06] MEDS: LOSARTAN 50 MG TAB PO SCH (09:27)
[2016-08-06] MEDS: metFORMIN 500 MG TAB PO SCH (09:27)
[2016-08-06] MEDS: INSULIN ASPART [NOVOLOG] 3 ML PEN SC SCH ×2 (09:30→12:52)
--- NOTE | 2016-08-06 10:21 | RADRPT ---
PROCEDURE: XR Knee. CLINICAL INDICATION: Status post right knee replacement TECHNIQUE: AP and lateral view of the right knee were obtained. The images reviewed on a PACS wor kstation. COMPARISON: August 02, 2016 FINDINGS: Complete right knee replacement is identified. Prosthetic components are in appropriate position an d alignment. No fractures or destructive lesions are observed. Small suprapatellar knee effusion ma y be present. IMPRESSION: Status post right knee replacement. Prosthetic components are in appropriate position and alignment . Small potential suprapatellar knee effusion. RPTAT: AA .Lalit Hamilton MD, Date Time Electronically viewed and signed by .Lalit Hamilton MD, on 08/06/2016 10:20 .P/
--- NOTE | 2016-08-06 11:46 | PN ---
Date/Time of Note Date/Time of Note DATE: 08/06/16 TIME: 11:45 Assessment/Plan VTE Prophylaxis VTE Prophylaxis Intervention: other Lines/Catheters IV Catheter Type (from Nrs): Saline Lock Urinary Cath still in place: No Assessment/Plan Chief Complaint/Hosp Course ASSESSMENT AND PLAN: 1. Status post right total knee replacement - POD # 3. Continue postoperative care per orthopedic surgery team recommendations including physical therapy, pain control medications and labs. 2. Type 2 diabetes - FS stable, A1c = 6.4. Continue to monitor for now, continue insulin sliding scale 3. Hypertension. Blood pressure stable. Continue current medications 4. History of coronary artery disease. Again, see #3. Continue current cardiac medications and statin medicines as well. 5. hyperkalemia - no cp - monitor, if worsens, consider kayexlate and EKG. 6. Deep venous thrombosis prophylaxis on high-dose aspirin. 7. Gastrointestinal prophylaxis on Protonix. We will continue to follow along. Problems: Subjective 24 Hr Interval Summary Free Text/Dictation She continues to complain of having right knee pain during ambulation No nausea vomiting diarrhea Tolerating oral intake Ambulating with physical therapy aide Exam/Review of Systems Vital Signs Vitals Vital Signs Date Time Temp Pulse Resp B/P Pulse Ox O2 Delivery O2 Flow Rate FiO2 08/06/16 07:32 98.0 78 18 130/63 95 08/03/16 08:00 Nasal Cannula 2.0 Intake and Output 08/05/16 08/05/16 08/06/16 15:00 23:00 07:00 Intake Total 1100 ml 600 ml Output Total 650 ml 900 ml Balance 450 ml -300 ml Exam General: The patient is moderately overweight, Not in acute distress. HEENT: Atraumatic, normocephalic. The pupils are equal and round . Neck: Supple with full range of motion. Chest: Normal expansion of the thorax during inspiration Lungs: Clear to auscultation bilaterally Heart: Normal S1-S2, Regular rhythm and rate. Abdomen: Soft , nontender, nondistended , bowel sounds are present. Extremities: Right knee surgical site is dry and clean with dry dressing, no edema no cyanosis Neurologic: Normal mental status,The patient is awake, alert and oriented . Results Result Diagram: 08/06/16 0451 08/06/16 0451 Results 24 hrs Laboratory Tests Test 08/05/16 17:30 08/05/16 20:54 08/06/16 01:09 08/06/16 04:51 Bedside Glucose 158 229 H 120 Hemoglobin 9.7 L Hematocrit 30.4 L Sodium Level 134 L Potassium Level 4.1 Chloride Level 100 Carbon Dioxide Level 26 Anion Gap 12 Blood Urea Nitrogen 17 Creatinine 0.65 Glucose Level 134 Calcium Level 8.8 Test 08/06/16 07:57 Bedside Glucose 182 Medications Medications Current Medications Atorvastatin Calcium (Lipitor) 10 mg QHS PO Last administered on 08/05/16 20: 49; Admin Dose 10 MG; Start 08/02/16 at 21:00 Losartan Potassium (Cozaar) 50 mg DAILY PO Last administered on 08/06/16 09:27 ; Admin Dose 50 MG; Start 08/03/16 at 09:00 Metoprolol Tartrate (Lopressor) 25 mg BID PO Last administered on 08/06/16 09: 27; Admin Dose 25 MG; Start 08/02/16 at 21:00 Celecoxib (Celebrex) 200 mg DAILY PO Last administered on 08/06/16 09:26; Admin Dose 200 MG; Start 08/03/16 at 09:00 Oxycodone HCl (Roxicodone) 5 mg Q4H PRN PO PAIN LEVEL 1-3; Start 08/02/16 at 17 :30 Oxycodone HCl (Roxicodone) 10 mg Q4H PRN PO PAIN LEVEL 4-7 Last administered on 08/05/16 09:02; Admin Dose 10 MG; Start 08/02/16 at 17:30 Hydromorphone HCl (Dilaudid) 1 mg Q3H PRN IV PAIN LEVEL 8-10; Start 08/02/16 at 17:30 Ondansetron HCl (Zofran Inj) 4 mg Q6H PRN IV NAUSEA AND/OR VOMITING Last administered on 08/02/16 21:05; Admin Dose 4 MG; Start 08/02/16 at 17:30 Bisacodyl (Dulcolax Supp) 10 mg Q12H PRN [place] CONSTIPATION; Start 08/02/16 at 17: 30 Magnesium Hydroxide (Milk Of Mag) 30 ml BID PRN PO CONSTIPATION; Start at 17:30 Sodium Biphosphate/ Sodium Phosphate (Fleet Enema) 133 ml DAILY PRN [place] CONSTIPATION; Start 08/02/16 at 17:30 Docusate Sodium (Colace) 100 mg BID PO Last administered on 08/06/16 09:26; Admin Dose 100 MG; Start 08/02/16 at 21:00 Diphenhydramine HCl (Benadryl) 25 mg Q6H PRN PO PRURITUS; Start 08/02/16 at 17: 30 Aspirin (Ecotrin) 325 mg BID PO Last administered on 08/06/16 09:26; Admin Dose 325 MG; Start 08/03/16 at 09:00 Pantoprazole (Protonix Tab) 40 mg BID@06,18 PO Last administered on 08/06/16 05:02; Admin Dose 40 MG; Start 08/02/16 at 18:00 Miscellaneous Information 1 ea NOTE XX ; Start 08/02/16 at 17:30 Glucose (Glutose) 15 gm Q15M PRN PO DECREASED GLUCOSE; Start 08/02/16 at 17:30 Glucose (Glutose) 22.5 gm Q15M PRN PO DECREASED GLUCOSE; Start 08/02/16 at 17: 30 Dextrose (D50w Syringe) 25 ml Q15M PRN IV DECREASED GLUCOSE; Start 08/02/16 at 17:30 Dextrose (D50w Syringe) 50 ml Q15M PRN IV DECREASED GLUCOSE; Start 08/02/16 at 17:30 Glucagon (Glucagen) 1 mg Q15M PRN IM DECREASED GLUCOSE; Start 08/02/16 at 17:30 Glucose (Glutose) 15 gm Q15M PRN BUCCAL DECREASED GLUCOSE; Start 08/02/16 at 17 :30 Diagnostic Test (Pha) (Accu-Chek) 1 ea 02 XX Last administered on 08/06/16 01: 10; Admin Dose 1 EA; Start 08/04/16 at 02:00 Acetaminophen/ Hydrocodone Bitart 1 tab 1 tab Q4H PRN PO PAIN Last administered on 08/06/16 09:41; Admin Dose 1 TAB; Start 08/05/16 at 13:30 Vancomycin HCl/ Sodium Chloride (Vancocin/NS) 150 ml @ 75 mls/hr Q12H IVPB Last administered on 08/06/16 05:02; Admin Dose 75 MLS/HR; Start 08/06/16 at 05 :00 MUSA PAIZ MD Aug 06, 2016 11:46
[2016-08-06] MEDS ORDERED: metFORMIN 500 MG TAB PO SCH (17:55)
--- NOTE | 2016-08-07 03:32 | DS ---
DATE OF ADMISSION: 08/02/2016 DATE OF DISCHARGE: 08/06/2016 CONDITION ON DISCHARGE: Stable. ADMITTING DIAGNOSIS: Right knee osteoarthritis. DISCHARGE DIAGNOSIS: Status post right total knee arthroplasty. PROCEDURE PERFORMED: Right total knee arthroplasty. HOSPITAL COURSE: This is a 66-year-old female who is well known to our office who was seen in the clinic complaining of bilateral knee pain. She had undergone left TKA successfully and had elected to proceed with a right total knee arthroplasty. On 08/02/2016, the patient was admitted and taken to the operating room where she underwent a right total knee arthroplasty. There were no intraoperative complications. The patient tolerated the procedure well. She was taken to the recovery room in stable condition. Pain was well controlled with oral pain medication, although she did develop some postoperative pain on days 3 and 4; however, prior to discharge, her pain was better controlled. She was started on aspirin and SCDs for DVT prophylaxis. She remained hemodynamically stable and neurovascularly intact throughout her hospital stay. She made good progress with physical therapy and was deemed stable for discharge on postoperative day #4. Prior to discharge, the incision was inspected and noted to be clean, dry, and intact. Dressing changes were done. The patient was going home. LABORATORY ANALYSIS: Hemoglobin 9.7, hematocrit 30.4. Chemistry panel was within normal limits, although the patient has elevated blood glucose levels consistent with her known history of diabetes. DISCHARGE MEDICATIONS: 1. [place] 7.5/325 2. Protonix 40 mg. 3. Tramadol 50 mg. 4. Aspirin 325 mg. 5. Neurontin 300 mg. 6. Additionally, the patient is to resume all of her normal home medications. DISCHARGE INSTRUCTIONS: The patient will be discharged home in stable condition. She is to resume her normal diet. Activity includes weightbearing as tolerated on the right lower extremity. She will begin physical therapy with home health. She will be discharged home on the medications noted above and is to resume all of her normal home medications. The patient is to call the office or go to the emergency room for any concerns including increased redness, swelling, drainage, fever, or any concerns regarding the operation or site of incision. FOLLOWUP: The patient is to follow up in the office on 08/13/2016. Dictated By: BLAIR PHILLIP/LB Conf#: [id number] [facility]#: [id number] MTDD
== END 2016-08-06 18:15 | disposition home health service (06) | DRG 470 ==
LOC: REC 10:03 → MS1 18:07
PROVIDERS: ADMIT Orthopaedic Surgery; ATTEND Orthopaedic Surgery
PROC: 0SRC0J9 Replacement of Right Knee Joint with Synthetic Substitute, Cemented, Open Approach (ICD-10-PCS; principal; 2016-08-02 13:00)
DX: M17.11 Unilateral primary osteoarthritis, right knee (principal); E87.5 Hyperkalemia; I10 Essential (primary) hypertension; I25.10 Atherosclerotic heart disease of native coronary artery without angina pectoris; E11.9 Type 2 diabetes mellitus without complications; Z95.5 Presence of coronary angioplasty implant and graft; Z79.899 Other long term (current) drug therapy; E78.5 Hyperlipidemia, unspecified; Z95.0 Presence of cardiac pacemaker; E66.9 Obesity, unspecified; Z96.652 Presence of left artificial knee joint; Z68.33 Body mass index [BMI] 33.0-33.9, adult
CPT/HCPCS: 73560; 80048; 81003; 82962; 83036; 85014; 85018; 86850; 86900; 86901; 86920; 87040; 87081; 87086; 88304; 88311; 93971; 97110; 97116; 97162; 97166; 97530; C1776; C9290; J0171; J0330; J0360; J0690; J0697; J0735; J1100; J1815; J1885; J2274; J2405; J2710; J3010; J3370; J7050; J7120

== ENCOUNTER → 2016-08-15 | Outpatient (CLI) | payer OTHER ==
[~2016-08-15] MED LIST changes: -CEFAZOLIN 1 GM INJ ONE; -GABA100C14 PO; +GABA300C PO; -LOSA1TAB19 PO; +LOSA50TA6 PO; +MTF1000T PO; -VIT D2
--- NOTE | 2016-08-15 10:56 | HKNOTE ---
DATE OF SERVICE: 08/15/2016 INTERVAL HISTORY: The patient presents today for her first postoperative evaluation. She is 10 days status post right total knee arthroplasty. She is doing well overall. Her pain has been manageable. She did have a CPM machine delivered to her house and has been using it, despite there being an order for a CPM. She has not taken the pain medicine and aspirin for pain and DVT prophylaxis. She denies any fevers or chills. She is happy with her progress overall. She presents today for her first postoperative evaluation. PHYSICAL EXAMINATION: GENERAL: Today, she is alert and oriented x4 and in no acute distress. She is ambulating with a front-wheel walker. EXTREMITIES: Exam of the incision demonstrates it to be clean, dry and intact. Kamilah are in place. There is no erythema or warmth noted. Range of motion is 0 to 105 degrees. Varus and valgus forces are stable. Homans sign is negative. Compartments are soft. Neurovascular status is intact distally. IMAGING: X-rays of the right knee were obtained today and reviewed by me. They demonstrate good anatomic alignment of the prosthesis with no fractures or dislocation identified. ASSESSMENT: Ten days status post right total knee arthroplasty, doing well. PLAN: The kamilah were removed today and Steri-Strips were applied. She will continue to do physical therapy at home and transition to an outpatient physical therapy program. Additionally, she should continue aspirin twice daily for DVT prophylaxis for a period of 6 weeks. We will see her back in approximately 4 weeks for repeat evaluation. She is to call the office in the meantime if she has any concerns. Dictated By: BLAIR MCLAIN for PRECIOUS PHILLIP/LB Conf#: [id number] DID#: [id number] MTDD
--- NOTE | 2016-08-16 09:27 | RADRPT ---
PROCEDURE: XR right knee. CLINICAL INDICATION: Knee pain. TECHNIQUE: AP and lateral views are available for review. COMPARISON: 08/06/2016 FINDINGS: There is a total knee replacement. There are anterior skin haydee. There is no evidence of looseni ng of the prosthesis. There is no evidence of hardware failure. The osseous structures are normal in mineralization, architecture and alignment No acute fracture or dislocation is seen.No osseous lesi ons are identified. The soft tissues are unremarkable . IMPRESSION: Unremarkable total knee replacement. RPTAT: HGDB .Ray Degroot MD, MD Date Time Electronically viewed and signed by .Ray Degroot MD, on 08/16/2016 09:27 .B/
== END | disposition home or self-care (01) ==
LOC: HKI 08:59
PROVIDERS: ATTEND Orthopaedic Surgery
DX: Z47.1 Aftercare following joint replacement surgery (principal); Z96.651 Presence of right artificial knee joint

== ENCOUNTER → 2016-09-12 | Outpatient (CLI) | payer OTHER | END | disposition home or self-care (01) | LOC: HKI 09:10 | PROVIDERS: ATTEND Orthopaedic Surgery | DX: Z47.1 Aftercare following joint replacement surgery (principal); M17.11 Unilateral primary osteoarthritis, right knee; Z96.651 Presence of right artificial knee joint ==

== ENCOUNTER → 2016-11-14 | Outpatient (CLI) | payer OTHER ==
--- NOTE | 2016-11-14 17:24 | RADRPT ---
PROCEDURE: XR Knees. CLINICAL INDICATION: Bilateral knee pain. Postop. TECHNIQUE: Total of six views. Frontal, oblique, and lateral views of both knees. COMPARISON: No prior study is available for comparison. FINDINGS: There are bilateral total knee arthroplasties. These appear satisfactory with no fracture, dislocat ion, or loosening. There is no joint effusion. There is no lytic or blastic lesion. IMPRESSION: 1. Satisfactory postoperative appearance of both knees. RPTAT: QQ .Isaac Cha MD, MD Date Time Electronically viewed and signed by .Isaac Cha MD, on 11/14/2016 17:23 .R/
== END | disposition home or self-care (01) ==
LOC: HKI 08:16
PROVIDERS: ATTEND Orthopaedic Surgery
DX: Z47.89 Encounter for other orthopedic aftercare (principal); Z96.653 Presence of artificial knee joint, bilateral
CPT/HCPCS: 73562; Z7500; G0463

== ENCOUNTER → 2017-02-21 | Outpatient (CLI) | payer OTHER ==
[~2017-02-21] MED LIST changes: -CALC600T11 PO; +CALC600T24 PO
--- NOTE | 2017-02-21 14:11 | RADRPT ---
PROCEDURE: Right knee radiographs. CLINICAL INDICATION: Right knee pain. Postop. TECHNIQUE: Three views. Weight bearing. Frontal, lateral, and patellar view. COMPARISON: 11/14/2016 FINDINGS: There is no fracture or dislocation. The soft tissues are normal. There is a total right knee arthroplasty which appears satisfactory. There is no lytic or blastic lesion. IMPRESSION: 1. Satisfactory postoperative appearance of the right knee. RPTAT: QQ .Isaac Cha MD, MD Date Time Electronically viewed and signed by .Isaac Cha MD, on 02/21/2017 14:11 .R/
--- NOTE | 2017-02-21 15:24 | HKNOTE ---
DATE OF SERVICE: 02/21/2017 CHIEF COMPLAINT: Followup right total knee arthroplasty. HISTORY OF PRESENT ILLNESS: A 67-year-old female who had a right total knee arthroplasty by Dr. Sun Bolanos approximately 6 months ago and a left total knee arthroplasty 9 months ago. She has pain i n her right knee. She does not use any assist devices. She denies any recent infections. She maida es any fevers, chills. She denies any instability. She does not take any pain medications. She de nies any groin or back pain. PHYSICAL EXAMINATION: GAIT: Nonantalgic gait, reciprocal gait pattern. RIGHT KNEE: Incision healed. No drainage, no erythema. 0 to 120 degrees range of motion. Stable to varus valgus stress. Negative anterior and posterior drawer. LEFT KNEE: Incision healed. No drainage, no erythema. 0 to 120 degrees range of motion. Stable t o varus valgus stress. Negative anterior and posterior drawer. MOTOR STRENGTH: 5/5 quadriceps, hamstrings, tibialis anterior, gastrocsoleus. IMAGING: X-rays right knee 3 views: X-rays of the right knee demonstrate intact total knee prosthe sis. There is no evidence of loosening. No osteolysis. No fractures or dislocations. IMPRESSION: A 67-year-old female status post bilateral total knee arthroplasties. PLAN: She does not require any pain medications. She will follow up in 1 year for routine followup exam. Dictated By: BRANDON JIMENEZ/LB Conf#: [id number] DID#: [id number]
== END | disposition home or self-care (01) ==
LOC: HKI 13:52
PROVIDERS: ATTEND Orthopaedic Surgery Adult Reconstructive Orthopaedic Surgery
DX: M25.561 Pain in right knee (principal); Z09 Encounter for follow-up examination after completed treatment for conditions other than malignant neoplasm; Z96.653 Presence of artificial knee joint, bilateral
CPT/HCPCS: 73562; Z7500; G0463

== ENCOUNTER → 2018-02-24 | Outpatient (CLI) | END | disposition home or self-care (01) ==